=== PATIENT | male | born 1965 | race Caucasian/White ===

== ENCOUNTER 2021-01-23 10:02 | Inpatient (IN) ==
[~2021-01-23 10:02] MED LIST: IPRATROPIUM/ALBUTEROL 3 ML AMPUL.NEB NEB PRN; SCOPOLAMINE 1 PATCH PATCH TOPICAL PRN; ceFAZolin 2 GM in DEXTROSE 5% IN WATER 50 ML IV SCH
[2021-01-23] MEDS ORDERED: fentaNYL 100 MCG/2 ML VIAL IV ONE (14:34)
[2021-01-23] MEDS ORDERED: ONDANSETRON 4 MG/2 ML VIAL ONE (14:34)
[2021-01-23] MEDS ORDERED: PROPOFOL 200 MG/20 ML VIAL IV ONE (14:34)
[2021-01-23] MEDS ORDERED: MIDAZOLAM 5 MG/5 ML VIAL ONE (14:34)
[2021-01-23] MEDS ORDERED: METHYLENE BLUE 50 MG/10 ML AMPUL INJ ONE (14:45)
[2021-01-23] MEDS ORDERED: BACITRACIN TOPICAL OINT 15 GM TUBE TOPICAL ONE (15:55)
[2021-01-23] MEDS ORDERED: IPRATROPIUM/ALBUTEROL 3 ML AMPUL.NEB NEB PRN (16:08)
[2021-01-23] MEDS ORDERED: fentaNYL 100 MCG/2 ML VIAL IV PRN (16:08)
--- NOTE | 2021-01-23 16:27 | Brief Operative Note ---
Brief Operative Note Date of procedure: 01/23/21 Pre-op diagnosis: Stage 4 sacral ulcer with osteomyelitis Post-op diagnosis: same Procedure: Wide excision of sacral ulcer, extensive debridement of sacral bone, bilateral gluteal flap closure Grafts/Implants: No Anesthesia: regional and conscious sedation Findings: Stage 4 ulcer with small amount poor quality bone. Good bone post debridement Complications: none Surgeon: Tino Saeed Estimated blood loss (cc): 100 Specimens Removed/Pathology: other (Post irrigation culture of sacral bone sent to microbiology) Condition: stable Disposition: PACU
--- NOTE | 2021-01-23 16:28 | Brief Operative Note ---
Brief Operative Note Date of procedure: 01/23/21 Surgeon: Tino Saeed
[2021-01-23] MEDS ORDERED: ceFAZolin 2 GM in DEXTROSE 5% IN WATER 50 ML IV SCH (16:47)
[2021-01-23] MEDS ORDERED: ONDANSETRON 4 MG/2 ML VIAL IV PRN (16:47)
[2021-01-23] MEDS ORDERED: HYDROcodone/APAP 5/325MG TABLET PO PRN (16:47)
[2021-01-23] MEDS ORDERED: POLYETHYLENE GLYCOL 3350 17 GM PACKET PO PRN (16:47)
--- NOTE | 2021-01-23 17:06 | Internal Med History&Physical ---
HPI History of Present Illness Patient information: Note initiated : 01/23/21 at 5:05 pm Service Date, if different from initiated Date: [] Patient: Olga Becerra 55 y/o M admitted on 01/23/21 for Wound Flap Closure. Chief Complaint: [] History of present illness: Mr. 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 Saeed and subsequently admitted to the hospital. The patient has been followed by infectious disease for sacral osteomyelitis. The patient was on broad-spectrum antibiotics prior to admission. Hospital medicine was consulted for medical management during the patient's hospitalization. The plan going forward is placement in a long term facility for wound care and probably rehab. The patient will likely also need antibiotic coverage going forward for them on certain period of time. When I spoke to the patient postoperatively, he says that his pain is well controlled. He did mention that he would like his left extremity PICC line removed. It sounds like this PICC line has been in place for several months. We discussed CODE STATUS at the end of our conversation, the patient wishes to be full code. Constitutional: no fever or fatigue Eyes: no vision changes or pain Cardiovascular: no chest pain, no palpitations Respiratory: no cough or dyspnea Gastrointestinal: positive for constipation, no abdominal pain, no nausea, vomiting, or diarrhea Genitourinary: urinary incontinence Musculoskeletal: no arthralgia or myalgia Integumentary: wound on back Neurological: paraplegia Psychiatric: no anxiety or depression Head: Atraumatic, normal inspection. Eyes: normal appearance, no scleral icterus. Neck: full ROM Respiratory: no respiratory distress. Cardiovascular: normal rate and rhythm, S1, S2. GI/Abdominal: soft, nontender, no guarding. Extremities: full range of motion, nontender. Neurological: CN II-XII intact, intact motor, intact sensation. Psychiatric: normal mood. Skin: clean decubitus pressure wound flap closure, two NAYE drains. PFSH PFSH All Active Problems (Updated 01/14/21 @ 14:18 by Latoya Erazo) Gout (Chronic) UTI (urinary tract infection) (Chronic) Anxiety disorder (Chronic) Cough (Chronic) Nausea with vomiting, unspecified (Chronic) Constipation, unspecified (Chronic) [facility] (current) use of insulin (Chronic) Personal history of other venous thrombosis and embolism (Chronic) [facility] (current) use of anticoagulants (Chronic) Body mass index [BMI] 20.0-20.9, adult (Chronic) Unspecified severe protein-calorie malnutrition (Chronic) Other disorders of phosphorus metabolism (Chronic) Pressure ulcer of sacral region, unstageable (Chronic) Generalized anxiety disorder (Chronic) Ascorbic acid deficiency (Chronic) Vitamin D deficiency, unspecified (Chronic) Iron deficiency anemia, unspecified (Chronic) Infection and inflammatory reaction due to indwelling urethral catheter, subsequent encounter (Chronic) Candidiasis, unspecified (Chronic) Infection due to Pseudomonas aeruginosa [place] Epidemic Strain (Chronic) Type 2 diabetes mellitus without complications (Chronic) Paraplegia, unspecified (Chronic) Spina bifida, unspecified (Chronic) Acute pyelonephritis (Chronic) Acute kidney failure, unspecified (Chronic) Acidosis (Chronic) 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) Medical History (Updated 01/14/21 @ 14:18 by Latoya Erazo) Acidosis Acute kidney failure, unspecified Acute pyelonephritis Acute tubulointerstitial nephritis due to hypersensitivity to drugs Due to piperacillin tazobactam Peak Creatinine 8 to 9 mg/dL Complete resolution with discontinuation of antibiotic and 1 month of prednisone therapy D/C calcium acetate Anxiety disorder Ascorbic acid deficiency Body mass index [BMI] 20.0-20.9, adult Candidiasis, unspecified Constipation, unspecified Cough Generalized anxiety disorder Gout Infection and inflammatory reaction due to indwelling urethral catheter, subsequent encounter Infection due to Pseudomonas aeruginosa [place] Epidemic Strain Iron deficiency anemia, unspecified supervisor intermediates (current) use of anticoagulants [facility] (current) use of insulin Nausea with vomiting, unspecified Other disorders of phosphorus metabolism Paraplegia, unspecified Personal history of other venous thrombosis and embolism Pressure ulcer of sacral region, unstageable Spina bifida, unspecified Type 2 diabetes mellitus without complications Unspecified severe protein-calorie malnutrition UTI (urinary tract infection) Vitamin D deficiency, unspecified Surgical History (Updated 01/14/21 @ 13:52 by Latoya Erazo) Presence of urogenital implants Family History (Updated 01/14/21 @ 13:47 by Latoya Erazo) Other No pertinent family history MEDS/ALLERGIES Home Medications and Allergies Home Medications Medication Instructions Recorded Confirmed Type acetaminophen 325 mg capsule 325 mg PO Q6HP PRN 01/08/21 01/23/21 History allopurinol 100 mg tablet 100 mg PO QDAY 01/08/21 01/23/21 History ascorbate calcium (vitamin C) 500 500 mg PO QDAY 01/08/21 01/23/21 History mg tablet aztreonam 1 gram solution for 1 g IM TID ea 01/08/21 01/23/21 History injection calcium carbonate 200 mg calcium 200 mg PO BID 01/08/21 01/23/21 History (500 mg) chewable tablet cholecalciferol (vitamin D3) 50 50 mcg PO QDAY 01/08/21 01/23/21 History mcg (2,000 unit) capsule collagenase clostridium histo. 250 1 applic TOPICAL QDAY 01/08/21 01/23/21 History unit/gram topical ointment guaifenesin 600 mg tablet, 600 mg PO Q12H PRN 01/08/21 01/23/21 History extended release 12 hr hydroxyzine HCl 25 mg tablet 25 mg PO Q6H PRN tab 01/08/21 01/23/21 History metoclopramide HCl 10 mg tablet 10 mg PO QDAY tab 01/08/21 01/23/21 History metronidazole 500 mg tablet 500 mg PO TID 01/08/21 01/23/21 History multivitamin 1 tab PO QAM 01/08/21 01/23/21 History warfarin 3 mg tablet 3 mg PO QDAY 01/08/21 01/23/21 History zinc gluconate 50 mg tablet 50 mg PO BID 01/08/21 01/23/21 History zinc oxide 20 % topical ointment 1 applic TOPICAL BID-QID PRN 01/08/21 01/23/21 History bisacodyl 5 mg tablet,delayed 5 mg PO QDAY PRN 01/14/21 01/23/21 History release linezolid 600 mg tablet 600 mg PO BID 01/14/21 01/23/21 History calcium carbonate-vitamin D3 1 tab PO BID 01/16/21 01/23/21 History Allergies Allergy/AdvReac Type Severity Reaction Status Date / Time piperacillin Allergy Severe Drug Verified 01/16/21 16:52 induced tubulointerstitial nephritis vancomycin Allergy Severe Red Man's Verified 01/16/21 15:53 Syndrome Erythromycin Base Allergy Unknown Unknown Verified 01/16/21 15:53 povidone-iodine Allergy Unknown Unknown Verified 01/16/21 15:53 [From [employer] Povidone Iodine] tazobactam [From Zosyn] AdvReac Severe Drug Verified 01/16/21 16:52 induced tubulointerstitial nephritis EXAM Constitutional Vitals: Temp Pulse Resp BP Pulse Ox 97.5 F 86 12 114/81 99 01/23/21 16:15 01/23/21 16:15 01/23/21 16:15 01/23/21 16:15 01/23/21 16:15 A/P Narrative A/P Narrative: Assessment: 55 year old male with a history of spina bifida and paraplegia, recurrent DVT, stage IV sacral pressure wound complicated by chronic wound infection and sacral osteomyelitis, prior AKIlikely secondary to acute interstitial nephritis from IV antibiotics, history of MRSA infection, bladder lesion of uncertain etiology underwent stage IV sacral pressure wound and sacral osteomyelitis debridement with bilateral gluteal flap closure on 01/23/[address] Saeed and subsequently admitted to the hospital. The patient had a PICC line for outpatient antibiotics that was removed soon after admission as it a ppeared to be contaminated and has been in for months according to the patient. The patient also has a carl catheter that was exchanged about a week ago. 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 -Diflucan for UTI. -Follow surgical cultures. -Resume Coumadin when ok with surgery, likely tomorrow. -Analgesics prn. -CBC, CMP, INR. -PICC line prior to discharge. -Ensure carl catheter exchange every 3 weeks to decrease risk of CAUTI. -DVT ppx: SCD now, likely start lovenox tomorrow. -Code status: Full -Disposition: SNF Time Spent With Patient Time: Total time spent is greater than 50% in coordination of care (as documented) at patient's floor/unit and/or counseling patient: 72 minutes QUALITY VTE Deep Vein Thrombosis/Pulmonary Embolism Present on Admission: No
[2021-01-23 17:54] LABS: Hematocrit 31.5 % (41.0-55.0); Mean Cell Volume 90.3 fL (80.0-100.0); Mean Corpuscular HGB Conc 31.7 g/dL (31.0-36.0); Mean Platelet Volume 8.5 fL (7.4-10.4); Platelet Count 507 K/mcL (140-440); RBC 3.49 M/mcL (4.50-5.90); Red Cell Distribution Width 19.9 % (11.5-14.5); WBC 10.3 K/mcL (4.5-11.0)
[2021-01-23] MEDS: FLUCONAZOLE 100 MG TABLET PO SCH (18:07)
[2021-01-23 18:15] LABS: ALT/SGPT 30 U/L (<40); AST/SGOT 24 U/L (<40); Albumin 2.9 gm/dL (3.2-5.2); Alkaline Phosphatase 74 U/L (39-117); Bilirubin,Total 0.2 mg/dL (0.1-1.0); Blood Urea Nitrogen 13 mg/dL (6-20); Calcium 8.4 mg/dL (8.6-10.4); Carbon Dioxide 28 mmol/L (22-30); Chloride 100 mmol/L (96-108); Glomerular Filtration Rate 120; Glucose 90 mg/dL (70-105)
[2021-01-23 18:20] LABS: INR 1.4 (0.9-1.1)
[2021-01-23 18:31] LABS: Eosinophils % (Manual) 16 % (0-7); Lymphocytes % 18 % (15-49); Monocytes % (Manual) 6 % (1-12); Platelet Estimate INCREASED (Normal); RBC Morphology NORMAL (Normal); Segmented Neutrophils % 60 % (38-78)
[2021-01-23] MEDS ORDERED: DAPTOmycin 500 MG VIAL IV SCH (19:15)
[2021-01-23] MEDS: DAPTOmycin 500 MG VIAL IV SCH (20:50)
[2021-01-23] MEDS: MEROPENEM 1 GM in 0.9 % SODIUM CHLORIDE 100 ML IV SCH (20:51)
[2021-01-23] MEDS: 0.9 % SODIUM CHLORIDE 10 ML SYRINGE IV SCH (20:52)
[2021-01-23] MEDS: SENNOSIDES 1 TABLET PO SCH (20:52)
[2021-01-23] MEDS: BACITRACIN TOPICAL OINT 15 GM TUBE TOPICAL SCH (20:52)
[2021-01-23] MEDS ORDERED: BACITRACIN TOPICAL OINT 15 GM TUBE TOPICAL SCH (21:00)
[2021-01-24] MEDS: 0.9 % SODIUM CHLORIDE 10 ML SYRINGE IV SCH ×3 (05:34→21:25)
[2021-01-24] MEDS: MEROPENEM 1 GM in 0.9 % SODIUM CHLORIDE 100 ML IV SCH (05:34)
[2021-01-24] MEDS: diphenhydrAMINE 25 MG CAPSULE PO PRN (07:31)
--- NOTE | 2021-01-24 07:31 | Infectious Disease Consult ---
HPI Data of Consult Primary Care Provider: Zaira Lopez Consult Narrative Patient Information: Note initiated : 01/24/21 at 7:14 am Service Date, if different from initiated Date: [] Patient: Olga Becerra 55 y/o M admitted on 01/23/21 for Wound Flap Closure. Chief Complaint: [tired of the hospital] Kelton is a 55-year-old paraplegic with spina bifida. I last saw him January 16. He has a previous history of sacral and left medial buttock decubitus ulcer. He has previously had left ischial osteomyelitis requiring muscle flap repair October 10, 2020. He finished 5 weeks of IV antibiotics Zosyn plus vancomycin approximately November 15. He developed rash towards the end of treatment requiring prednisone therapy. He subsequently developed new sacral decubitus ulceration and coccygeal osteomyelitis. Original cultures on September 24, 2020 grew group B strep, E. coli, Pseudomonas, and Streptococcus mitis. He had sacra l cultures positive for MRSA and Enterococcus December 19, 2020. He has been on IV aztreonam oral Zyvox oral Flagyl for the past [address] Saeed completed sacral bone debridement and bilateral flap yesterday postop day 1. His sed rate on January 13 was 64. Last week, he required Oneal catheter placement. He also developed new fever prompting cultures. A urine culture had grown Randee albicans and Diflucan was started currently day 5. He has a previous history of allergy to erythromycin and vancomycin. His previous allergy occurred in combination with vancomycin plus Zosyn. He previously had a rechallenge with oral Augmentin and tolerated. I therefore considered his significant allergy history previously to vancomycin rather than Zosyn. Dr. Cobos contacted last night for consultation today regarding antibiotic therapy. Dr. Saeed obtained post procedure cultures yesterday. These results will help determine if he needs to receive 1 week versus 6 weeks of treatment. This morning, Kelton feels flushed and itchy. On January 20 H&H 05/02 white count 6.1 platelet count 533 sed rate 79 glucose 151 creatinine 0.6 and CRP 0.6. Temperature on January 21 99.1. Yesterday 97.9. He has a history of DVT June 03, 2020 requiring Coumadin. He has a previous history of [employer] shunt urinary sphincter implant with neurogenic bladder, left femur rodding as well as first sacral decubitus flap 2002. cc:: CC: Tino Saeed Review of Systems Review of systems: Generally: No fevers or chills. HEENT: No headache or sore throat. No neck complaints. Pulmonary: No cough or shortness of breath. Cardiac: No chest pain. GI: No abdominal pain. : Oneal catheter is in place. Extremities: He is wearing SCDs. Left PICC line has been removed. Skin: He does complain of itchiness. 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) use of anticoagulants (Chronic) Body mass index [BMI] 20.0-20.9, adult (Chronic) Unspecified severe protein-calorie malnutrition (Chronic) Other disorders of phosphorus metabolism (Chronic) Pressure ulcer of sacral region, unstageable (Chronic) Generalized anxiety disorder (Chronic) Ascorbic acid deficiency (Chronic) Vitamin D deficiency, unspecified (Chronic) Iron deficiency anemia, unspecified (Chronic) Infection and inflammatory reaction due to indwelling urethral catheter, subsequent encounter (Chronic) Candidiasis, unspecified (Chronic) Infection due to Pseudomonas aeruginosa [place] Epidemic Strain (Chronic) Type 2 diabetes mellitus without complications (Chronic) Paraplegia, unspecified (Chronic) Spina bifida, unspecified (Chronic) Acute pyelonephritis (Chronic) Acute kidney failure, unspecified (Chronic) Acidosis (Chronic) 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) Medical History (Updated 01/24/21 @ 07:33 by Adria Pittman MD) Acidosis Acute kidney failure, unspecified Acute pyelonephritis Acute tubulointerstitial nephritis due to hypersensitivity to drugs Due to piperacillin tazobactam Peak Creatinine 8 to 9 mg/dL Complete resolution with discontinuation of antibiotic and 1 month of prednisone therapy D/C calcium acetate Anxiety disorder Ascorbic acid deficiency Body mass index [BMI] 20.0-20.9, adult Candidiasis, unspecified Constipation, unspecified Cough Generalized anxiety disorder Gout Infection and inflammatory reaction due to indwelling urethral catheter, subsequent encounter Infection due to Pseudomonas aeruginosa [place] Epidemic Strain Iron deficiency anemia, unspecified detention (current) use of anticoagulants detention (current) use of insulin Nausea with vomiting, unspecified Other disorders of phosphorus metabolism Paraplegia, unspecified Previous discussion regarding colostomy has been advised Personal history of other venous thrombosis and embolism Pressure ulcer of sacral region, unstageable Postop day 1. Will discuss with Dr. Cobos. Thank you very much. Spina bifida, unspecified Chronic. Type 2 diabetes mellitus without complications Unspecified severe protein-calorie malnutrition UTI (urinary tract infection) Vitamin D deficiency, unspecified Surgical History Presence of urogenital implants Family History Other No pertinent family history MEDS/ALLERGIES Home Medications and Allergies Home Medications Medication Instructions Recorded Confirmed Type acetaminophen 325 mg capsule 325 mg PO Q6HP PRN 01/08/21 01/23/21 History allopurinol 100 mg tablet 100 mg PO QDAY 01/08/21 01/23/21 History ascorbate calcium (vitamin C) 500 500 mg PO QDAY 01/08/21 01/23/21 History mg tablet aztreonam 1 gram solution for 1 g IM TID ea 01/08/21 01/23/21 History injection calcium carbonate 200 mg calcium 200 mg PO BID 01/08/21 01/23/21 History (500 mg) chewable tablet cholecalciferol (vitamin D3) 50 50 mcg PO QDAY 01/08/21 01/23/21 History mcg (2,000 unit) capsule collagenase clostridium histo. 250 1 applic TOPICAL QDAY 01/08/21 01/23/21 History unit/gram topical ointment guaifenesin 600 mg tablet, 600 mg PO Q12H PRN 01/08/21 01/23/21 History extended release 12 hr hydroxyzine HCl 25 mg tablet 25 mg PO Q6H PRN tab 01/08/21 01/23/21 History metoclopramide HCl 10 mg tablet 10 mg PO QDAY tab 01/08/21 01/23/21 History metronidazole 500 mg tablet 500 mg PO TID 01/08/21 01/23/21 History multivitamin 1 tab PO QAM 01/08/21 01/23/21 History warfarin 3 mg tablet 3 mg PO QDAY 01/08/21 01/23/21 History zinc gluconate 50 mg tablet 50 mg PO BID 01/08/21 01/23/21 History zinc oxide 20 % topical ointment 1 applic TOPICAL BID-QID PRN 01/08/21 01/23/21 History bisacodyl 5 mg tablet,delayed 5 mg PO QDAY PRN 01/14/21 01/23/21 History release linezolid 600 mg tablet 600 mg PO BID 01/14/21 01/23/21 History calcium carbonate-vitamin D3 1 tab PO BID 01/16/21 01/23/21 History Allergies Allergy/AdvReac Type Severity Reaction Status Date / Time piperacillin Allergy Severe Drug Verified 01/16/21 16:52 induced tubulointerstitial nephritis vancomycin Allergy Severe Red Man's Verified 01/16/21 15:53 Syndrome Erythromycin Base Allergy Unknown Unknown Verified 01/16/21 15:53 povidone-iodine Allergy Unknown Unknown Verified 01/16/21 15:53 [From [employer] Povidone Iodine] tazobactam [From Zosyn] AdvReac Severe Drug Verified 01/16/21 16:52 induced tubulointerstitial nephritis Physical Examination Vital Signs Vital signs: Temp Pulse Resp BP Pulse Ox 98.9 F 125 H 18 102/61 96 01/24/21 03:26 01/24/21 03:26 01/24/21 03:26 01/24/21 03:26 01/24/21 03:26 Additional Exam Additional exam: General: He appears generally flushed in the face. He is scratching his arms. HEENT: No oral ulcers. Anicteric sclera. No lip lesions. EOMI. Neck is supple. Lungs are clear without wheezing. Heart: Regular rate and rhythm without murmur. Abdomen: Soft nontender. : Positive Oneal catheter. Extremities: No knee effusions. SCDs in place. Skin: He is beginni ng to develop skin pinkness. Skin is dry on his upper extremities. He has a right peripheral line in place. 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 He has previously had left ischial osteomyelitis with flap repair October 10, 2020. He received 5 weeks of IV antibiotic therapy at that time completing therapy approximately November 15. He developed rash towards the end of treatment with Vanco and Zosyn. Last sacral culture obtained December 19, 2020 grew MRSA and Enterococcus. He has been on IV aztreonam plus oral Zyvox, oral Flagyl for the past 3 weeks. He is now postop day 1 surgical debridement for sacrococcygeal osteomyelitis and bilateral flap. 2 drains remain. Bloody fluid within the drain bulbs. Postprocedure cultures obtained today. He is currently on IV meropenem plus daptomycin. It appears that he is developing allergic reaction again now. Benadryl started. I suspect meropenem as etiology. DC meropenem and substitute aztreonam and Flagyl. Duration of therapy will depend on culture results. If cultures are negative I would only recommend 1 week of therapy. If cultures are positive, he will need treatment for osteomyelitis 6 weeks directed against organism. I will be out of town next week, but available by phone. Add meropenem to drug allergy list. (2) MRSA (methicillin resistant staph aureus) culture positive: Status: Acute Comment: Daptomycin to cover. Previous allergy to vancomycin. (3) Paraplegia, unspecified: Status: Chronic Comment: Previous discussion regarding colostomy has been advised (4) Spina bifida, unspecified: Status: Chronic Comment: Chronic. (5) Pressure ulcer of sacral region, unstageable: Status: Chronic Comment: Postop day 1. Will discuss with Dr. Cobos. Thank you very much. Time Spent With Patient Time: Total time spent is greater than 50% in coordination of care (as documented) at patient's floor/unit and/or counseling patient:
[2021-01-24 08:00] LABS: Basophils # (Auto) 0.08 K/mcL (0.00-0.20); Basophils % (Auto) 0.6 % (0.0-2.0); Eosinophils # (Auto) 1.88 K/mcL (0.00-0.70); Eosinophils % (Auto) 14.6 % (0.0-7.0); Hematocrit 32.7 % (41.0-55.0); Hemoglobin 10.2 g/dL (13.5-16.5); Lymphocytes % (Auto) 4.7 % (15.0-49.0); Mean Cell Volume 90.1 fL (80.0-100.0); Mean Corpuscular HGB Conc 31.2 g/dL (31.0-36.0); Mean Platelet Volume 8.9 fL (7.4-10.4); Monocytes # (Auto) 0.83 K/mcL (0.10-0.90); Monocytes % (Auto) 6.4 % (1.0-12.0); Neutrophils % (Auto) 73.7 % (38.0-78.0); Platelet Count 569 K/mcL (140-440); RBC 3.63 M/mcL (4.50-5.90); Red Cell Distribution Width 19.9 % (11.5-14.5); WBC 12.9 K/mcL (4.5-11.0)
[2021-01-24] MEDS: AZTREONAM 1 GM VIAL IV SCH ×3 (08:15→21:25)
[2021-01-24] MEDS: FLUCONAZOLE 100 MG TABLET PO SCH (08:59)
[2021-01-24] MEDS: BACITRACIN TOPICAL OINT 15 GM TUBE TOPICAL SCH ×2 (09:00→21:24)
--- NOTE | 2021-01-24 12:10 | Internal Med Progress Note ---
SUBJECTIVE Subjective Patient information: Note initiated : 01/24/21 at 12:08 pm Service Date, if different from initiated Date: [] Patient: Olga Becerra 55 y/o M admitted on 01/23/21 for Wound Flap Closure. Chief Complaint: [] Interval history: Mr. 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 Saeed and subsequently admitted to the hospital. The patient has been followed by infectious disease for sacral osteomyelitis. The patient was on broad-spectrum antibiotics prior to admission. Hospital medicine was consulted for medical management during the patient's hospitalization. The plan going forward is placement in a nursing home facility for wound care and probably rehab. The patient will likely also need antibiotic coverage going forward for them on certain period of time. When I spoke to the patient postop eratively, he says that his pain is well controlled. He did mention that he would like his left extremity PICC line removed. It sounds like this PICC line has been in place for several months. We discussed CODE STATUS at the end of our conversation, the patient wishes to be full code. 01/24-developed a rash, ID feel secondary to Meropenem. Started Benadryl and Prednisone, Meropenem changed to Aztreonam. Head: Atraumatic, normal inspection. Eyes: normal appearance, no scleral icterus. Neck: full ROM Respiratory: no respiratory distress. Cardiovascular: normal rate and rhythm, S1, S2. GI/Abdominal: soft, nontender, no guarding. Extremities: full range of motion, nontender. Neurological: CN II-XII intact, bilateral lower extremity weakness Psychiatric: normal mood. Skin: diffuse rash, two NAYE drains present. Constitutional Vitals: Vital Signs Temp Pulse Resp BP Pulse Ox 99.3 F H 123 H 16 109/61 96 01/24/21 08:00 01/24/21 08:00 01/24/21 08:00 01/24/21 08:00 01/24/21 08:00 Period Temp Pulse Resp BP Sys/Reich Pulse Ox Last 24 Hr 97.3 F-99.3 F 81-125 10-18 96-125/61-81 96-100 Intake and Output 01/23/21 01/24/21 01/24/21 21:59 05:59 13:59 Intake Total 850 600 100 Output Total 300 675 Balance 550 -75 100 Weight 61.292 kg Intake & Output: Intake & Output 01/23/21 01/24/21 01/24/21 21:59 05:59 13:59 Intake Total 850 600 100 Output Total 300 675 Balance 550 -75 100 Weight 61.292 kg Intake: IV 50 100 100 Merrem 1 gm In Sodium Chloride 100 100 0.9% 100 ml @ 100 mls/hr IV Q8H [facility] Rx#:[id number] Ancef 2 gm In Dextrose 5% in 50 Water 50 ml @ 100 mls/hr IV PREOP [facility] Rx#:[id number] Oral 500 IV - Manual Only 800 Output: Drainage 25 right hip A 10 right hip B 15 Urine Catheter Amount 100 650 Estimated Blood Loss 200 Other: Urine Appearance Uretheral (Carl) Clear Clear Urine Color Uretheral (Carl) Bright Yellow Bright Yellow Stool Size Smear Stool Color Brown # of times incontinent of 1 Bowels OBJ DATA Labs CBC & Chem 7: 01/24/21 05:15 01/23/21 17:22 Labs: Abnormal Lab Results 01/24/21 01/23/21 01/23/21 05:15 17:22 17:22 WBC 12.9 H RBC 3.63 L 3.49 L Hgb 10.2 L 10.0 L Hct 32.7 L 31.5 L RDW 19.9 H 19.9 H Plt Count 569 H 507 H Lymph % (Auto) 4.7 L Eos % (Auto) 14.6 H Lymph # (Auto) 0.60 L Eos # (Auto) 1.88 H Eosinophils % (Manual) 16 H Absolute Neutrophils 9.50 H Platelet Estimate Increased A PT INR Anion Gap 6.0 L Creatinine 0.5 L Calcium 8.4 L Albumin 2.9 L 01/23/21 17:22 WBC RBC Hgb Hct RDW Plt Count Lymph % (Auto) Eos % (Auto) Lymph # (Auto) Eos # (Auto) Eosinophils % (Manual) Absolute Neutrophils Platelet Estimate PT 18.0 H INR 1.4 H Anion Gap Creatinine Calcium Albumin Meds: Medications Acetaminophen (Acetaminophen 325 Mg Tablet) 650 mg PO Q6HP PRN; Protocol PRN Reason: Per Pain Protocol/Fever > 101 Hydrocodone Bitart/Acetaminophen (Hydrocodone/Apap 5/325mg Tablet) 1 tab PO Q4HP PRN; Protocol PRN Reason: Per Pain Protocol Aztreonam (Aztreonam 1 Gm Vial) 1 gm IV Q8H [facility]; Protocol Last Admin: 01/24/21 08:15 Dose: 1 gm Documented by: Bacitracin (Bacitracin Topical Oint 15 Gm Tube) 1 dose TOPICAL BID [facility] Last Admin: 01/24/21 09:00 Dose: 1 dose Documented by: Daptomycin (Daptomycin 500 Mg Vial) 400 mg IV DAILY [facility]; Protocol Last Admin: 01/23/21 20:50 Dose: 400 mg Documented by: Diphenhydramine HCl (Diphenhydramine 25 Mg Capsule) 25 mg PO Q4-6HP PRN PRN Reason: Allergic Symptoms Last Admin: 01/24/21 07:31 Dose: 25 mg Documented by: Fluconazole (Fluconazole 100 Mg Tablet) 200 mg PO DAILY [facility]; Protocol Stop: 01/26/21 09:01 Last Admin: 01/24/21 08:59 Dose: 200 mg Documented by: Metronidazole (Metronidazole 500 Mg Tablet) 500 mg PO Q8 [facility]; Protocol Ondansetron HCl (Ondansetron 4 Mg/2 Ml Vial) 4 mg IV Q6HP PRN PRN Reason: Nausea And Vomiting Polyethylene Glycol (Polyethylene Glycol 3350 17 Gm Packet) 17 gm PO DAILYP PRN PRN Reason: Constipation Prednisone (Prednisone 20 Mg Tablet) 40 mg PO [facility] Stop: 01/28/21 08:01 Senna (Sennosides 1 Tablet) 2 tab PO HS [facility] Last Admin: 01/23/21 20:52 Dose: Not Given Documented by: Sodium Chloride (0.9 % Sodium Chloride 10 Ml Syringe) 10 ml IV Q8 [facility] Last Admin: 01/24/21 05:34 Dose: 10 ml Documented by: A/P Narrative A/P Narrative: Assessment: 55 year old male with a history of spina bifida and paraplegia, recurrent DVT, stage IV sacral pressure wound complicated by chronic wound infection and sacral osteomyelitis, prior AKIlikely secondary to acute interstitial nephritis from IV antibiotics, history of MRSA infection, bladder lesion of uncertain etiology underwent stage IV sacral pressure wound and sacral osteomyelitis debridement with bilateral gluteal flap closure on 01/23/[address] Saeed and subsequently admitted to the hospital. The patient had a PICC line for outpatient antibiotics that was removed soon after admission as it appeared to be contaminated and has been in for months according to the patient. The patient also has a carl catheter that was exchanged about a week ago. 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 -Benadryl prn and Prednisone x5 days for rash (and hx of AIN) -Diflucan for UTI. -Follow surgical cultures. -Resume Coumadin-ok with surgery. -Analgesics prn. -daily CBC, CMP, INR. -Will probably need a PICC line prior to discharge. -Ensure carl catheter exchange every 3 weeks to decrease risk of CAUTI. -DVT ppx: lovenox SQ -Code status: Full -Disposition: SNF vs LTACH Time Spent With Patient Time: Total time spent is greater than 50% in coordination of care (as documented) at patient's floor/unit and/or counseling patient: QUALITY VTE Deep Vein Thrombosis/Pulmonary Embolism Present on Admission: No
[2021-01-24] MEDS: ACETAMINOPHEN 325 MG TABLET PO PRN ×2 (12:16→17:44)
[2021-01-24] MEDS: predniSONE 20 MG TABLET PO SCH (12:17)
[2021-01-24] MEDS ORDERED: ENOXAPARIN 40 MG/0.4 ML SYRINGE SQ ONE (12:30)
[2021-01-24] MEDS: DAPTOmycin 500 MG VIAL IV SCH (13:27)
--- NOTE | 2021-01-24 13:27 | General Surgery Progress Note ---
SUBJECTIVE Subjective Patient information: Note initiated : 01/24/21 at 1:24 pm Service Date, if different from initiated Date: [] Patient: Olga Becerra 55 y/o M admitted on 01/23/21 for Wound Flap Closure. Chief Complaint: []Feels okay but has high fever Constitutional Vitals: Vital Signs Temp Pulse Resp BP Pulse Ox 102.7 F H 146 H 16 91/58 94 01/24/21 12:16 01/24/21 12:00 01/24/21 12:00 01/24/21 12:00 01/24/21 12:00 Period Temp Pulse Resp BP Sys/Reich Pulse Ox Last 24 Hr 97.3 F-102.7 F 81-146 10-18 91-125/58-81 94-100 Intake and Output 01/23/21 01/24/21 01/24/21 21:59 05:59 13:59 Intake Total 850 600 100 Output Total 300 675 Balance 550 -75 100 Weight 135 lb 2 oz Intake & Output: Intake & Output 01/23/21 01/24/21 01/24/21 21:59 05:59 13:59 Intake Total 850 600 100 Output Total 300 675 Balance 550 -75 100 Weight 135 lb 2 oz Intake: IV 50 100 100 Merrem 1 gm In Sodium Chloride 100 100 0.9% 100 ml @ 100 mls/hr IV Q8H [facility] Rx#:[id number] Ancef 2 gm In Dextrose 5% in 50 Water 50 ml @ 100 mls/hr IV PREOP [facility] Rx#:[id number] Oral 500 IV - Manual Only 800 Output: Drainage 25 right hip A 10 right hip B 15 Urine Catheter Amount 100 650 Estimated Blood Loss 200 Other: Urine Appearance Uretheral (Oneal) Clear Clear Urine Color Uretheral (Oneal) Bright Yellow Bright Yellow Stool Size Smear Stool Color Brown # of times incontinent of 1 Bowels Head Head exam: Present atraumatic and normal inspection Eye Eye exam: Present normal appearance ENT ENT exam: Present mucous membranes moist, normal exam and normal external ear exam Neck Neck exam: Present normal inspection Respiratory Respiratory exam: Present normal respiratory exam Cardiovascular Cardiovascular exam: Present normal rate and rhythm GI/Abdominal GI/Abdominal exam: Present normal bowel sounds Back Exam Back exam: Present normal inspection Neurological Exam Neurological exam: Present alert and oriented X3 Skin Skin exam: Present intact and warm Additional comments: Surgical site clean, dry, intact. No evidence of infection, no drainage. NAYE drainage bloody A/P Narrative A/P Narrative: One day s/p excision and flap closure of sacral wound with osteomyelitis Surgical site intact, drainage minimal, bloody. Cx with no growth to date. Continue local care, IV abx, await final cultures to direct abx management Fever does not appear to be from surgical site. Nurses state he's using spirometer well. Pt says he doesn't feel ill. Discussed possibility of getting a bed with better air off loading capacity or at least see if his bed can be adjusted. Time Spent With Patient Time: Total time spent is greater than 50% in coordination of care (as documented) at patient's floor/unit and/or counseling patien Total time spent with greater than 50% in coordination of care (as documented) at patient's floor/unit and/or counseling patient:: 25 - 35 minutes
[2021-01-24] MEDS: metroNIDAZOLE 500 MG TABLET PO SCH ×2 (13:29→21:24)
[2021-01-24] MEDS ORDERED: WARFARIN 3 MG TABLET PO ONE (14:00)
[2021-01-24] MEDS: SENNOSIDES 1 TABLET PO SCH (20:04)
[2021-01-25] MEDS: metroNIDAZOLE 500 MG TABLET PO SCH ×3 (06:09→21:12)
[2021-01-25] MEDS: 0.9 % SODIUM CHLORIDE 10 ML SYRINGE IV SCH ×3 (06:10→21:12)
[2021-01-25] MEDS: AZTREONAM 1 GM VIAL IV SCH ×3 (06:10→21:12)
[2021-01-25 07:49] LABS: Basophils # (Auto) 0.05 K/mcL (0.00-0.20); Basophils % (Auto) 0.4 % (0.0-2.0); Eosinophils # (Auto) 0.28 K/mcL (0.00-0.70); Hematocrit 29.7 % (41.0-55.0); Hemoglobin 9.1 g/dL (13.5-16.5); Lymphocytes # (Auto) 0.58 K/mcL (1.50-4.80); Lymphocytes % (Auto) 4.2 % (15.0-49.0); Mean Corpuscular HGB Conc 30.6 g/dL (31.0-36.0); Mean Platelet Volume 9.1 fL (7.4-10.4); Monocytes # (Auto) 0.64 K/mcL (0.10-0.90); Monocytes % (Auto) 4.7 % (1.0-12.0); Neutrophils % (Auto) 88.7 % (38.0-78.0); Platelet Count 579 K/mcL (140-440); RBC 3.23 M/mcL (4.50-5.90); Red Cell Distribution Width 19.9 % (11.5-14.5); WBC 13.7 K/mcL (4.5-11.0)
[2021-01-25] MEDS: diphenhydrAMINE 25 MG CAPSULE PO PRN (07:50)
[2021-01-25 08:02] LABS: INR 1.4 (0.9-1.1); Prothrombin Time 17.5 sec (11.9-14.5)
--- NOTE | 2021-01-25 09:24 | General Surgery Progress Note ---
SUBJECTIVE Subjective Patient information: Note initiated : 01/25/21 at 9:21 am Service Date, if different from initiated Date: [] Patient: Olga Becerra 55 y/o M admitted on 01/23/21 for Wound Flap Closure. Now POD #2 Chief Complaint: Pt feeling better this morning. Feels a little warm but eating well. Constitutional Vitals: Vital Signs Temp Pulse Resp BP Pulse Ox 99.5 F H 103 H 18 108/62 98 01/25/21 07:00 01/25/21 07:00 01/25/21 07:00 01/25/21 07:00 01/25/21 07:00 Period Temp Pulse Resp BP Sys/Reich Pulse Ox Last 24 Hr 97.8 F-102.7 F 103-146 16-18 80-136/50-62 94-99 Intake and Output 01/24/21 01/25/21 01/25/21 21:59 05:59 13:59 Intake Total 200 Output Total 575 365 Balance -575 -165 Weight 138 lb 3 oz Intake & Output: Intake & Output 01/24/21 01/25/21 01/25/21 21:59 05:59 13:59 Intake Total 200 Output Total 575 365 Balance -575 -165 Weight 138 lb 3 oz Intake: Oral 200 Output: Drainage 25 15 right hip A 10 5 right hip B 15 10 Urine Catheter Amount 550 350 Other: Urine Appearance Clear Clear Sediment Uretheral (Oneal) Clear Urine Color Light Leticia Dark Yellow Uretheral (Oneal) Straw Stool Size Smear Large Stool Color Brown Brown Stool Consistency Soft Dry and Hard # Bowel Movements 1 # of times incontinent of 1 Bowels A/P Time Spent With Patient Time: s/p exc and flap closure of sacral pressure ulcer with underlying osteo of the sacrum Doing better. Temp is down albeit Tylenol is helping, cultures pending. Surgical cultures still with no growth. COntinue IV abx, local wound care, nutrition. Total time spent is greater than 50% in coordination of care (as documented) at patient's floor/unit and/or counseling patient:
[2021-01-25] MEDS: ENOXAPARIN 40 MG/0.4 ML SYRINGE SQ SCH (09:52)
[2021-01-25] MEDS: predniSONE 20 MG TABLET PO SCH (09:52)
[2021-01-25] MEDS: FLUCONAZOLE 100 MG TABLET PO SCH (09:52)
[2021-01-25] MEDS: BACITRACIN TOPICAL OINT 15 GM TUBE TOPICAL SCH ×2 (09:53→21:11)
[2021-01-25 10:01] LABS: Blood Urea Nitrogen 34 mg/dL (6-20); Calcium 8.6 mg/dL (8.6-10.4); Carbon Dioxide 25 mmol/L (22-30); Chloride 102 mmol/L (96-108); Glomerular Filtration Rate 105; Glucose 132 mg/dL (70-105)
[2021-01-25] MEDS: DAPTOmycin 500 MG VIAL IV SCH ×2 (12:21→12:25)
[2021-01-25] MEDS ORDERED: WARFARIN 5 MG TABLET PO ONE (14:00)
--- NOTE | 2021-01-25 16:27 | Internal Med Progress Note ---
SUBJECTIVE Subjective Patient information: Note initiated : 01/25/21 at 4:24 pm Service Date, if different from initiated Date: [] Patient: Olga Becerra 55 y/o M admitted on 01/23/21 for Wound Flap Closure. Chief Complaint: [] Interval history: Mr. 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 Saeed and subsequently admitted to the hospital. The patient has been followed by infectious disease for sacral osteomyelitis. The patient was on broad-spectrum antibiotics prior to admission. Hospital medicine was consulted for medical management during the patient's hospitalization. The plan going forward is placement in a halfway facility for wound care and probably rehab. The patient will likely also need antibiotic coverage going forward for them on certain period of time. When I spoke to the patient postope ratively, he says that his pain is well controlled. He did mention that he would like his left extremity PICC line removed. It sounds like this PICC line has been in place for several months. We discussed CODE STATUS at the end of our conversation, the patient wishes to be full code. 01/24-developed a rash, ID feel secondary to Meropenem. Started Benadryl and Prednisone, Meropenem coverage changed to Aztreonam and Flagyl. Daptomycin continued. 01/25-improved rash, will continue prednisone for 5 days. Head: Atraumatic, normal inspection. Eyes: normal appearance, no scleral icterus. Neck: full ROM Respiratory: no respiratory distress. Cardiovascular: normal rate and rhythm, S1, S2. GI/Abdominal: soft, nontender, no guarding. Extremities: full range of motion, nontender. Neurological: CN II-XII intact, bilateral lower extremity weakness Psychiatric: normal mood. Skin: diffuse rash, two NAYE drains present. Constitutional Vitals: Vital Signs Temp Pulse Resp BP Pulse Ox 98.6 F 110 H 16 101/63 95 01/25/21 12:00 01/25/21 12:00 01/25/21 12:00 01/25/21 12:00 01/25/21 12:00 Period Temp Pulse Resp BP Sys/Reich Pulse Ox Last 24 Hr 97.8 F-101.1 F 103-124 16-18 93-136/57-63 94-99 Intake and Output 01/25/21 01/25/21 01/25/21 05:59 13:59 21:59 Intake Total 200 240 800 Output Total 365 Balance -165 240 800 Intake & Output: Intake & Output 01/25/21 01/25/21 01/25/21 05:59 13:59 21:59 Intake Total 200 240 800 Output Total 365 Balance -165 240 800 Intake: Oral 200 240 800 Output: Drainage 15 right hip A 5 right hip B 10 Urine Catheter Amount 350 Other: Meal Lunch Percent of Meal Consumed 75% Urine Appearance Clear Uretheral (Carl) Clear Urine Color Dark Yellow Uretheral (Carl) Straw Stool Size Smear Smear Stool Color Brown Brown Stool Consistency Soft Soft # Bowel Movements 1 # of times incontinent of 1 1 Bowels OBJ DATA Labs CBC & Chem 7: 01/25/21 06:01 01/25/21 08:59 Labs: Abnormal Lab Results 01/25/21 01/25/21 01/25/21 08:59 06:01 06:00 WBC 13.7 H RBC 3.23 L Hgb 9.1 L Hct 29.7 L MCHC 30.6 L RDW 19.9 H Plt Count 579 H Neut % (Auto) 88.7 H Lymph % (Auto) 4.2 L Eos % (Auto) Lymph # (Auto) 0.58 L Eos # (Auto) Eosinophils % (Manual) Absolute Neutrophils 12.16 H Platelet Estimate PT 17.5 H INR 1.4 H Anion Gap 7.0 L BUN 34 H Creatinine Glucose 132 H Calcium Albumin 01/24/21 01/23/21 01/23/21 05:15 17:22 17:22 WBC 12.9 H RBC 3.63 L 3.49 L Hgb 10.2 L 10.0 L Hct 32.7 L 31.5 L MCHC RDW 19.9 H 19.9 H Plt Count 569 H 507 H Neut % (Auto) Lymph % (Auto) 4.7 L Eos % (Auto) 14.6 H Lymph # (Auto) 0.60 L Eos # (Auto) 1.88 H Eosinophils % (Manual) 16 H Absolute Neutrophils 9.50 H Platelet Estimate Increased A PT INR Anion Gap 6.0 L BUN Creatinine 0.5 L Glucose Calcium 8.4 L Albumin 2.9 L 01/23/21 17:22 WBC RBC Hgb Hct MCHC RDW Plt Count Neut % (Auto) Lymph % (Auto) Eos % (Auto) Lymph # (Auto) Eos # (Auto) Eosinophils % (Manual) Absolute Neutrophils Platelet Estimate PT 18.0 H INR 1.4 H Anion Gap BUN Creatinine Glucose Calcium Albumin Meds: Medications Acetaminophen (Acetaminophen 325 Mg Tablet) 650 mg PO Q6HP PRN; Protocol PRN Reason: Per Pain Protocol/Fever > 101 Last Admin: 01/24/21 17:44 Dose: 650 mg Documented by: Hydrocodone Bitart/Acetaminophen (Hydrocodone/Apap 5/325mg Tablet) 1 tab PO Q4HP PRN; Protocol PRN Reason: Per Pain Protocol Aztreonam (Aztreonam 1 Gm Vial) 1 gm IV Q8H [facility]; Protocol Last Admin: 01/25/21 14:37 Dose: 1 gm Documented by: Bacitracin (Bacitracin Topical Oint 15 Gm Tube) 1 dose TOPICAL BID [facility] Last Admin: 01/25/21 09:53 Dose: 1 dose Documented by: Daptomycin (Daptomycin 500 Mg Vial) 400 mg IV DAILY@0900 [facility]; Protocol Last Admin: 01/25/21 12:21 Dose: 400 mg Documented by: Diphenhydramine HCl (Diphenhydramine 25 Mg Capsule) 25 mg PO Q4-6HP PRN PRN Reason: Allergic Symptoms Last Admin: 01/25/21 07:50 Dose: 25 mg Documented by: Enoxaparin Sodium (Enoxaparin 40 Mg/0.4 Ml Syringe) 40 mg SQ DAILY [facility] Last Admin: 01/25/21 09:52 Dose: 40 mg Documented by: Fluconazole (Fluconazole 100 Mg Tablet) 200 mg PO DAILY [facility]; Protocol Stop: 01/26/21 09:01 Last Admin: 01/25/21 09:52 Dose: 200 mg Documented by: Metronidazole (Metronidazole 500 Mg Tablet) 500 mg PO Q8 [facility]; Protocol Last Admin: 01/25/21 14:36 Dose: 500 mg Documented by: Ondansetron HCl (Ondansetron 4 Mg/2 Ml Vial) 4 mg IV Q6HP PRN PRN Reason: Nausea And Vomiting Polyethylene Glycol (Polyethylene Glycol 3350 17 Gm Packet) 17 gm PO DAILYP PRN PRN Reason: Constipation Prednisone (Prednisone 20 Mg Tablet) 40 mg PO [facility] Stop: 01/28/21 08:01 Last Admin: 01/25/21 09:52 Dose: 40 mg Documented by: Senna (Sennosides 1 Tablet) 2 tab PO HS [facility] Last Admin: 01/24/21 20:04 Dose: Not Given Documented by: Sodium Chloride (0.9 % Sodium Chloride 10 Ml Syringe) 10 ml IV Q8 [facility] Last Admin: 01/25/21 14:37 Dose: 10 ml Documented by: Warfarin Sodium (Warfarin Per Pharmacy) 1 order PO UD [facility] A/P Narrative A/P Narrative: Assessment: 55 year old male with a history of spina bifida and paraplegia, recurrent DVT, stage IV sacral pressure wound complicated by chronic wound infection and sacral osteomyelitis, prior AKIlikely secondary to acute interstitial nephritis from IV antibiotics, history of MRSA infection, bladder lesion of uncertain etiology underwent stage IV sacral pressure wound and sacral osteomyelitis debridement with bilateral gluteal flap closure on 01/23/[address] Saeed and subsequently admitted to the hospital. The patient had a PICC line for outpatient antibiotics that was removed soon after admission as it appeared to be contaminated and has been in for months according to the patient. The patient also has a carl catheter that was exchanged about a week ago. 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 -Benadryl prn and Prednisone x5 days for rash (and hx of AIN) -Complete prior becca UTI treatment with Diflucan. -Follow surgical cultures. -Coumadin w/ pharmacy -Analgesics prn. -daily CBC, CMP, INR. -Will probably need a PICC line prior to discharge. -Ensure carl catheter exchange every 3 weeks to decrease risk of CAUTI. -DVT ppx: lovenox SQ -Code status: Full -Disposition: SNF vs LTACH Time Spent With Patient Time: Total time spent is greater than 50% in coordination of care (as documented) at patient's floor/unit and/or counseling patient: QUALITY VTE Deep Vein Thrombosis/Pulmonary Embolism Present on Admission: No
[2021-01-25] MEDS: SENNOSIDES 1 TABLET PO SCH (21:12)
[2021-01-26] MEDS: AZTREONAM 1 GM VIAL IV SCH ×3 (06:09→21:35)
[2021-01-26] MEDS: 0.9 % SODIUM CHLORIDE 10 ML SYRINGE IV SCH ×3 (06:10→20:02)
[2021-01-26] MEDS: metroNIDAZOLE 500 MG TABLET PO SCH ×3 (06:10→21:35)
[2021-01-26 07:44] LABS: Basophils # (Auto) 0.09 K/mcL (0.00-0.20); Basophils % (Auto) 0.5 % (0.0-2.0); Eosinophils # (Auto) 3.84 K/mcL (0.00-0.70); Eosinophils % (Auto) 23.3 % (0.0-7.0); Hematocrit 27.2 % (41.0-55.0); Hemoglobin 8.3 g/dL (13.5-16.5); Lymphocytes # (Auto) 1.19 K/mcL (1.50-4.80); Lymphocytes % (Auto) 7.2 % (15.0-49.0); Mean Cell Volume 93.5 fL (80.0-100.0); Mean Corpuscular HGB Conc 30.5 g/dL (31.0-36.0); Mean Platelet Volume 8.9 fL (7.4-10.4); Monocytes # (Auto) 1.75 K/mcL (0.10-0.90); Monocytes % (Auto) 10.6 % (1.0-12.0); Neutrophils % (Auto) 58.4 % (38.0-78.0); Platelet Count 562 K/mcL (140-440); RBC 2.91 M/mcL (4.50-5.90); Red Cell Distribution Width 19.8 % (11.5-14.5); WBC 16.5 K/mcL (4.5-11.0)
[2021-01-26 07:50] LABS: INR 1.6 (0.9-1.1); Prothrombin Time 19.6 sec (11.9-14.5)
[2021-01-26 08:00] LABS: Blood Urea Nitrogen 34 mg/dL (6-20); Calcium 8.5 mg/dL (8.6-10.4); Carbon Dioxide 24 mmol/L (22-30); Chloride 102 mmol/L (96-108); Glomerular Filtration Rate 111; Glucose 108 mg/dL (70-105)
[2021-01-26] MEDS: predniSONE 20 MG TABLET PO SCH (08:37)
[2021-01-26] MEDS: FLUCONAZOLE 100 MG TABLET PO SCH (08:37)
[2021-01-26] MEDS: BACITRACIN TOPICAL OINT 15 GM TUBE TOPICAL SCH ×2 (08:38→20:02)
[2021-01-26] MEDS: DAPTOmycin 500 MG VIAL IV SCH (08:38)
[2021-01-26] MEDS: ENOXAPARIN 40 MG/0.4 ML SYRINGE SQ SCH (08:38)
--- NOTE | 2021-01-26 09:56 | General Surgery Progress Note ---
SUBJECTIVE Subjective Patient information: Note initiated : 01/26/21 at 9:55 am Service Date, if different from initiated Date: [] Patient: Olga Becerra 55 y/o M admitted on 01/23/21 for Wound Flap Closure. Chief Complaint: Pt is now POD #3 from excision and flap closure of sacral pressure ulcer with osteomyelitis Feeling better this morning Constitutional Vitals: Vital Signs Temp Pulse Resp BP Pulse Ox 98.7 F 105 H 16 105/67 97 01/26/21 07:34 01/26/21 08:00 01/26/21 07:34 01/26/21 07:34 01/26/21 07:34 Period Temp Pulse Resp BP Sys/Reich Pulse Ox Last 24 Hr 97.7 F-99.6 F 69-115 16-18 98-117/59-71 94-97 Intake and Output 01/25/21 01/26/21 01/26/21 21:59 05:59 13:59 Intake Total 800 900 Output Total 450 507 Balance 350 393 Weight 144 lb 4.8 oz Intake & Output: Intake & Output 01/25/21 01/26/21 01/26/21 21:59 05:59 13:59 Intake Total 800 900 Output Total 450 507 Balance 350 393 Weight 144 lb 4.8 oz Intake: Oral 800 900 Output: Drainage 7 right hip A 4 right hip B 3 Void Amount 450 500 Other: Meal Dinner Percent of Meal Consumed 100% Urine Appearance Uretheral (Oneal) Clear Urine Color Straw Uretheral (Oneal) Bright Yellow Stool Size Large Stool Color Brown Stool Consistency Dry and Hard # of times incontinent of 1 Bowels Skin Additional comments: Skin incision clean, dry, intact. some increased erythema and bruising at base. Need to monitor A/P Narrative A/P Narrative: Doing well. Cultures from surgery negative thus far. If negative over the next two days then we'll have to discuss post surgical IV management. Sacrum extensively debrided down to healthy bone. NAYE drainage coming down but will leave in a minimim of 10 days Monitor flap, local care; turning patient as airbed not ideal. Discussed placing patient in reverse trandelenberg to eat rather than sitting up to avoid extra stress on surgical site. Bedrest, strict Time Spent With Patient Time: Total time spent is greater than 50% in coordination of care (as documented) at patient's floor/unit and/or counseling patient:
[2021-01-26] MEDS ORDERED: WARFARIN 5 MG TABLET PO ONE (14:00)
--- NOTE | 2021-01-26 17:09 | Internal Med Progress Note ---
SUBJECTIVE Subjective Patient information: Note initiated : 01/26/21 at 5:07 pm Service Date, if different from initiated Date: [] Patient: Olga Becerra 55 y/o M admitted on 01/23/21 for Wound Flap Closure. Chief Complaint: [] Interval history: Mr. 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 Saeed and subsequently admitted to the hospital. The patient has been followed by infectious disease for sacral osteomyelitis. The patient was on broad-spectrum antibiotics prior to admission. Hospital medicine was consulted for medical management during the patient's hospitalization. The plan going forward is placement in a fpc facility for wound care and probably rehab. The patient will likely also need antibiotic coverage going forward for them on certain period of time. When I spoke to the patient postope ratively, he says that his pain is well controlled. He did mention that he would like his left extremity PICC line removed. It sounds like this PICC line has been in place for several months. We discussed CODE STATUS at the end of our conversation, the patient wishes to be full code. 01/24-developed a rash, ID feel secondary to Meropenem. Started Benadryl and Prednisone, Meropenem coverage changed to Aztreonam and Flagyl. Daptomycin continued. 01/25-improved rash, will continue prednisone. 01/26-good appetite, rash resolved so discontinued prednisone, surgery culture- NGTD, leukocytosis likely from prednisone Head: Atraumatic, normal inspection. Eyes: normal appearance, no scleral icterus. Neck: full ROM Respiratory: no respiratory distress. Cardiovascular: normal rate and rhythm, S1, S2. GI/Abdominal: soft, nontender, no guarding. Extremities: full range of motion, nontender. Neurological: CN II-XII intact, bilateral lower extremity weakness Psychiatric: normal mood. Skin: diffuse rash, two NAYE drains present. Constitutional Vitals: Vital Signs Temp Pulse Resp BP Pulse Ox 98.8 F 73 16 104/69 97 01/26/21 16:00 01/26/21 16:00 01/26/21 16:00 01/26/21 16:00 01/26/21 16:00 Period Temp Pulse Resp BP Sys/Reich Pulse Ox Last 24 Hr 97.7 F-99.2 F 69-111 16-18 100-117/59-71 94-97 Intake and Output 01/26/21 01/26/21 01/26/21 05:59 13:59 21:59 Intake Total 900 Output Total 507 Balance 393 Intake & Output: Intake & Output 01/26/21 01/26/21 01/26/21 05:59 13:59 21:59 Intake Total 900 Output Total 507 Balance 393 Intake: Oral 900 Output: Drainage 7 right hip A 4 right hip B 3 Void Amount 500 Other: Meal Lunch Percent of Meal Consumed 75% Feeding Ability Independent Urine Appearance Uretheral (Carl) Clear Urine Color Uretheral (Carl) Bright Yellow Stool Size Large Stool Color Brown Stool Consistency Dry and Hard # of times incontinent of 1 Bowels OBJ DATA Labs CBC & Chem 7: 01/26/21 05:30 01/26/21 05:29 Labs: Abnormal Lab Results 01/26/21 01/26/21 01/26/21 05:30 05:30 05:29 WBC 16.5 H RBC 2.91 L Hgb 8.3 L Hct 27.2 L MCHC 30.5 L RDW 19.8 H Plt Count 562 H Neut % (Auto) Lymph % (Auto) 7.2 L Eos % (Auto) 23.3 H Lymph # (Auto) 1.19 L Island # (Auto) 1.75 H Eos # (Auto) 3.84 H Eosinophils % (Manual) Absolute Neutrophils 9.58 H Platelet Estimate PT 19.6 H INR 1.6 H Anion Gap BUN 34 H Creatinine 0.6 L Glucose 108 H Calcium 8.5 L Albumin 01/25/21 01/25/21 01/25/21 08:59 06:01 06:00 WBC 13.7 H RBC 3.23 L Hgb 9.1 L Hct 29.7 L MCHC 30.6 L RDW 19.9 H Plt Count 579 H Neut % (Auto) 88.7 H Lymph % (Auto) 4.2 L Eos % (Auto) Lymph # (Auto) 0.58 L Island # (Auto) Eos # (Auto) Eosinophils % (Manual) Absolute Neutrophils 12.16 H Platelet Estimate PT 17.5 H INR 1.4 H Anion Gap 7.0 L BUN 34 H Creatinine Glucose 132 H Calcium Albumin 01/24/21 01/23/21 01/23/21 05:15 17:22 17:22 WBC 12.9 H RBC 3.63 L 3.49 L Hgb 10.2 L 10.0 L Hct 32.7 L 31.5 L MCHC RDW 19.9 H 19.9 H Plt Count 569 H 507 H Neut % (Auto) Lymph % (Auto) 4.7 L Eos % (Auto) 14.6 H Lymph # (Auto) 0.60 L Island # (Auto) Eos # (Auto) 1.88 H Eosinophils % (Manual) 16 H Absolute Neutrophils 9.50 H Platelet Estimate Increased A PT INR Anion Gap 6.0 L BUN Creatinine 0.5 L Glucose Calcium 8.4 L Albumin 2.9 L 01/23/21 17:22 WBC RBC Hgb Hct MCHC RDW Plt Count Neut % (Auto) Lymph % (Auto) Eos % (Auto) Lymph # (Auto) Island # (Auto) Eos # (Auto) Eosinophils % (Manual) Absolute Neutrophils Platelet Estimate PT 18.0 H INR 1.4 H Anion Gap BUN Creatinine Glucose Calcium Albumin Meds: Medications Acetaminophen (Acetaminophen 325 Mg Tablet) 650 mg PO Q6HP PRN; Protocol PRN Reason: Per Pain Protocol/Fever > 101 Last Admin: 01/24/21 17:44 Dose: 650 mg Documented by: Hydrocodone Bitart/Acetaminophen (Hydrocodone/Apap 5/325mg Tablet) 1 tab PO Q4HP PRN; Protocol PRN Reason: Per Pain Protocol Aztreonam (Aztreonam 1 Gm Vial) 1 gm IV Q8H [facility]; Protocol Last Admin: 01/26/21 15:55 Dose: 1 gm Documented by: Bacitracin (Bacitracin Topical Oint 15 Gm Tube) 1 dose TOPICAL BID [facility]ATH[facility] Last Admin: 01/26/21 08:38 Dose: 1 dose Documented by: Daptomycin (Daptomycin 500 Mg Vial) 400 mg IV DAILY@0900 [facility]; Protocol Last Admin: 01/26/21 08:38 Dose: 400 mg Documented by: Diphenhydramine HCl (Diphenhydramine 25 Mg Capsule) 25 mg PO Q4-6HP PRN PRN Reason: Allergic Symptoms Last Admin: 01/25/21 07:50 Dose: 25 mg Documented by: Enoxaparin Sodium (Enoxaparin 40 Mg/0.4 Ml Syringe) 40 mg SQ DAILY [facility] Last Admin: 01/26/21 08:38 Dose: 40 mg Documented by: Metronidazole (Metronidazole 500 Mg Tablet) 500 mg PO Q8 [facility]; Protocol Last Admin: 01/26/21 15:55 Dose: 500 mg Documented by: Ondansetron HCl (Ondansetron 4 Mg/2 Ml Vial) 4 mg IV Q6HP PRN PRN Reason: Nausea And Vomiting Polyethylene Glycol (Polyethylene Glycol 3350 17 Gm Packet) 17 gm PO DAILYP PRN PRN Reason: Constipation Senna (Sennosides 1 Tablet) 2 tab PO HS [facility] Last Admin: 01/25/21 21:12 Dose: Not Given Documented by: Sodium Chloride (0.9 % Sodium Chloride 10 Ml Syringe) 10 ml IV Q8 [facility] Last Admin: 01/26/21 15:56 Dose: 10 ml Documented by: Warfarin Sodium (Warfarin Per Pharmacy) 1 order PO UD [facility] A/P Narrative A/P Narrative: Assessment: 55 year old male with a history of spina bifida and paraplegia, recurrent DVT, stage IV sacral pressure wound complicated by chronic wound infection and sacral osteomyelitis, prior AKIlikely secondary to acute interstitial nephritis from IV antibiotics, history of MRSA infection, bladder lesion of uncertain etiology underwent stage IV sacral pressure wound and sacral osteomyelitis debridement with bilateral gluteal flap closure on 01/23/[address] Saeed and subsequently admitted to the hospital. The patient had a PICC line for outpatient antibiotics that was removed soon after admission as it appeared to be contaminated and has been in for months according to the patient. The patient also has a carl catheter that was exchanged about a week ago. 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 -Discontinued Prednisone -Complete prior becca UTI treatment with Diflucan. -Follow surgical cultures. -Coumadin w/ pharmacy -Analgesics prn. -Will probably need a PICC line prior to discharge-per ID. -Ensure carl catheter exchange every 3 weeks to decrease risk of CAUTI. -DVT ppx: lovenox SQ -Code status: Full -Disposition: SNF vs LTACH Time Spent With Patient Time: Total time spent is greater than 50% in coordination of care (as documented) at patient's floor/unit and/or counseling patient: QUALITY VTE Deep Vein Thrombosis/Pulmonary Embolism Present on Admission: No
[2021-01-26] MEDS: SENNOSIDES 1 TABLET PO SCH (20:02)
[2021-01-27] MEDS: 0.9 % SODIUM CHLORIDE 10 ML SYRINGE IV SCH ×3 (05:38→22:58)
[2021-01-27] MEDS: AZTREONAM 1 GM VIAL IV SCH ×3 (05:38→22:58)
[2021-01-27] MEDS: metroNIDAZOLE 500 MG TABLET PO SCH ×3 (05:38→22:58)
--- NOTE | 2021-01-27 07:02 | Operative Note ---
DATE OF OPERATION: 01/23/2021 PREOPERATIVE DIAGNOSIS: Stage IV sacral pressure sore with osteomyelitis of sacrum. POSTOPERATIVE DIAGNOSIS: Stage IV sacral pressure sore with osteomyelitis of sacrum. PROCEDURE PERFORMED: Excision of a pressure sore with resection of skin, subcutaneous fat, fascia, muscle, and bone. Additional procedure: Bilateral gluteus estella flap closure of sacral defect. SURGEON: Augie Saeed M.D. EDUCATION SITE MANAGER: SHORTY Chambers ANESTHESIA: Conscious sedation. COMPLICATIONS: None. DRAINS: Two 7 mm NAYE drains were placed. SPECIMENS: Post-irrigation and debridement culture of sacral bone was sent to microbiology. INDICATIONS: The patient is a 55-year-old male with spina bifida. He developed a sacral pressure sore about 6 weeks ago, the patient developed osteomyelitis from a wound swab and has been treated with antibiotics for his bony infection. The patient is now ready for debridement of all nonviable bone and closure to help with healing and prevent recurrence. The operative procedure was thus indicated. DESCRIPTION OF PROCEDURE: The patient identified in the holding area where the planned procedure was discussed with him. He wished to proceed and consented freely. He was taken to the operating room. Two grams of Ancef were given IV. Patient was then placed prone on the operating table with all of his pressure points adequately protected. Oneal catheter was placed in a way to avoid additional trauma. The patient's entire buttock and perineal area was prepped and draped sterilely. The open wound was painted with blue dye for the purpose of debriding all nonviable and exposed tissue. The ulcer itself was resected first resecting the entire skin margin and then dissecting down into the exposed fascia muscle and then down to the bone. Additionally, the bone was curetted and the rongeur was used to debride all obvious involved bone, certainly all soft bone. There was good healthy bleeding bone at the base. These wounds were irrigated out with 3 liters of sterile lactated Ringer's solution and a post-debridement and irrigation culture was obtained from the bone with a fresh rongeur and sent to microbiology. Given the open wound, my options were some sort of a rotational flap, but with his osteomyelitis, I preferred something that would give him good muscle coverage over the exposed bone. One gluteus muscle would not reach much past the midline, so I elected to elevate both gluteus muscles across the midline. This was done, the gluteus from the overlying skin and inferiorly from the sacral bone. Meticulous hemostasis was achieved with electrocautery. The gluteus on the contralateral side was also elevated in a similar fashion. Enough muscle was obtained so that the muscle could be pulled across the midline with appropriate tension. Having been content with the muscle advancement, two drains were placed, first into the deep space directly on the bone. The drain was secured with 3-0 nylon and then the muscle was then approximated with multiple interrupted 2-0 Vicryl sutures. Between the muscle and the skin a second drain was placed, this also via a separate stab incision and also secured with 3-0 nylon. The skin was then closed using interrupted 0 Monocryl sutures to approximate the dermis and multiple horizontal mattress and simple sutures of 3-0 nylon and surgical clips. Having been content with the operative procedure and the relative minimal tension on the skin, the wounds were then dressed with bacitracin. I initially was concerned about contamination of stool, but I was afraid if I covered the wound, the stool would enter the dressing and stay on the wound for an extended period of time. The patient was then rolled onto his air bed and taken over to the recovery room, he was awake, alert, and appropriate. There were no complications. Sponge and needle counts were correct, and the patient tolerated the procedure well. EMERALD:geneva Job ID: [id number] Doc ID: [id number] Tino Saeed MD
[2021-01-27 07:54] LABS: Basophils # (Auto) 0.06 K/mcL (0.00-0.20); Basophils % (Auto) 0.4 % (0.0-2.0); Eosinophils # (Auto) 2.63 K/mcL (0.00-0.70); Eosinophils % (Auto) 18.3 % (0.0-7.0); Hematocrit 26.8 % (41.0-55.0); Hemoglobin 8.2 g/dL (13.5-16.5); Lymphocytes # (Auto) 1.73 K/mcL (1.50-4.80); Mean Cell Volume 91.2 fL (80.0-100.0); Mean Corpuscular HGB Conc 30.6 g/dL (31.0-36.0); Mean Platelet Volume 8.8 fL (7.4-10.4); Monocytes # (Auto) 1.72 K/mcL (0.10-0.90); Monocytes % (Auto) 11.9 % (1.0-12.0); Neutrophils % (Auto) 57.4 % (38.0-78.0); Platelet Count 615 K/mcL (140-440); RBC 2.94 M/mcL (4.50-5.90); Red Cell Distribution Width 19.8 % (11.5-14.5); WBC 14.4 K/mcL (4.5-11.0)
[2021-01-27 08:18] LABS: INR 2.1 (0.9-1.1); Prothrombin Time 24.2 sec (11.9-14.5)
[2021-01-27 08:43] LABS: Blood Urea Nitrogen 35 mg/dL (6-20); Calcium 8.4 mg/dL (8.6-10.4); Carbon Dioxide 23 mmol/L (22-30); Chloride 103 mmol/L (96-108); Glomerular Filtration Rate 105; Glucose 99 mg/dL (70-105)
[2021-01-27] MEDS: DAPTOmycin 500 MG VIAL IV SCH (09:10)
[2021-01-27] MEDS: ENOXAPARIN 40 MG/0.4 ML SYRINGE SQ SCH (09:10)
[2021-01-27] MEDS: BACITRACIN TOPICAL OINT 15 GM TUBE TOPICAL SCH ×2 (09:17→20:52)
--- NOTE | 2021-01-27 13:58 | Internal Med Progress Note ---
SUBJECTIVE Subjective Patient information: Note initiated : 01/27/21 at 1:56 pm Service Date, if different from initiated Date: [] Patient: Olga Becerra 55 y/o M admitted on 01/23/21 for Wound Flap Closure. Chief Complaint: [] Interval history: Mr. 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 Saeed and subsequently admitted to the hospital. The patient has been followed by infectious disease for sacral osteomyelitis. The patient was on broad-spectrum antibiotics prior to admission. Hospital medicine was consulted for medical management during the patient's hospitalization. The plan going forward is placement in a correction facility for wound care and probably rehab. The patient will likely also need antibiotic coverage going forward for them on certain period of time. When I spoke to the patient postope ratively, he says that his pain is well controlled. He did mention that he would like his left extremity PICC line removed. It sounds like this PICC line has been in place for several months. We discussed CODE STATUS at the end of our conversation, the patient wishes to be full code. 01/24-developed a rash, ID feel secondary to Meropenem. Started Benadryl and Prednisone, Meropenem coverage changed to Aztreonam and Flagyl. Daptomycin continued. 01/25-improved rash, will continue prednisone. 01/26-good appetite, rash resolved so discontinued prednisone, surgery culture- NGTD, leukocytosis likely from prednisone 01/27-leukocytosis improving so very likely was from prednisone, cultures showing no growth to date, infectious disease on vacation so unable to get recommendations for IV antibiotics, possible discharge to [facility]. Head: Atraumatic, normal inspection. Eyes: normal appearance, no scleral icterus. Neck: full ROM Respiratory: no respiratory distress. Cardiovascular: normal rate and rhythm, S1, S2. GI/Abdominal: soft, nontender, no guarding. Extremities: full range of motion, nontender. Neurological: CN II-XII intact, bilateral lower extremity weakness Psychiatric: normal mood. Skin: diffuse rash, two NAYE drains present. Constitutional Vitals: Vital Signs Temp Pulse Resp BP Pulse Ox 98.4 F 89 16 114/76 95 01/27/21 12:00 01/27/21 12:00 01/27/21 12:00 01/27/21 12:00 01/27/21 12:00 Period Temp Pulse Resp BP Sys/Reich Pulse Ox Last 24 Hr 97.9 F-98.8 F 73-98 16-18 104-117/68-76 95-97 Intake and Output 01/26/21 01/27/21 01/27/21 21:59 05:59 13:59 Intake Total 600 Output Total 1000 468 Balance -400 -468 Weight 66.678 kg Intake & Output: Intake & Output 01/26/21 01/27/21 01/27/21 21:59 05:59 13:59 Intake Total 600 Output Total 1000 468 Balance -400 -468 Weight 66.678 kg Intake: Oral 600 Output: Drainage 18 right hip A 4 right hip B 14 Urine Catheter Amount 1000 450 Other: Meal Lunch Percent of Meal Consumed 75% Feeding Ability Independent Urine Appearance Cloudy Clear Uretheral (Carl) Clear Clear Urine Color Dark Yellow Straw Uretheral (Carl) Dark Yellow Bright Yellow Stool Size Moderate Smear Stool Color Brown Brown Stool Consistency Dry and Hard # Bowel Movements 1 # of times incontinent of 1 Bowels OBJ DATA Labs CBC & Chem 7: 01/27/21 05:40 01/27/21 05:40 Labs: Abnormal Lab Results 01/27/21 01/27/21 01/27/21 05:40 05:40 05:40 WBC 14.4 H RBC 2.94 L Hgb 8.2 L Hct 26.8 L MCHC 30.6 L RDW 19.8 H Plt Count 615 H Neut % (Auto) Lymph % (Auto) 12.0 L Eos % (Auto) 18.3 H Lymph # (Auto) [place] # (Auto) 1.72 H Eos # (Auto) 2.63 H Absolute Neutrophils 8.26 H PT 24.2 H INR 2.1 H Anion Gap BUN 35 H Creatinine Glucose Calcium 8.4 L 01/26/21 01/26/21 01/26/21 05:30 05:30 05:29 WBC 16.5 H RBC 2.91 L Hgb 8.3 L Hct 27.2 L MCHC 30.5 L RDW 19.8 H Plt Count 562 H Neut % (Auto) Lymph % (Auto) 7.2 L Eos % (Auto) 23.3 H Lymph # (Auto) 1.19 L [place] # (Auto) 1.75 H Eos # (Auto) 3.84 H Absolute Neutrophils 9.58 H PT 19.6 H INR 1.6 H Anion Gap BUN 34 H Creatinine 0.6 L Glucose 108 H Calcium 8.5 L 01/25/21 01/25/21 01/25/21 08:59 06:01 06:00 WBC 13.7 H RBC 3.23 L Hgb 9.1 L Hct 29.7 L MCHC 30.6 L RDW 19.9 H Plt Count 579 H Neut % (Auto) 88.7 H Lymph % (Auto) 4.2 L Eos % (Auto) Lymph # (Auto) 0.58 L [place] # (Auto) Eos # (Auto) Absolute Neutrophils 12.16 H PT 17.5 H INR 1.4 H Anion Gap 7.0 L BUN 34 H Creatinine Glucose 132 H Calcium Meds: Medications Acetaminophen (Acetaminophen 325 Mg Tablet) 650 mg PO Q6HP PRN; Protocol PRN Reason: Per Pain Protocol/Fever > 101 Last Admin: 01/24/21 17:44 Dose: 650 mg Documented by: Hydrocodone Bitart/Acetaminophen (Hydrocodone/Apap 5/325mg Tablet) 1 tab PO Q4HP PRN; Protocol PRN Reason: Per Pain Protocol Aztreonam (Aztreonam 1 Gm Vial) 1 gm IV Q8H [facility]; Protocol Last Admin: 01/27/21 05:38 Dose: 1 gm Documented by: Bacitracin (Bacitracin Topical Oint 15 Gm Tube) 1 dose TOPICAL BID [facility] Last Admin: 01/27/21 09:17 Dose: 1 dose Documented by: Daptomycin (Daptomycin 500 Mg Vial) 400 mg IV DAILY@0900 [facility]; Protocol Last Admin: 01/27/21 09:10 Dose: 400 mg Documented by: Diphenhydramine HCl (Diphenhydramine 25 Mg Capsule) 25 mg PO Q4-6HP PRN PRN Reason: Allergic Symptoms Last Admin: 01/25/21 07:50 Dose: 25 mg Documented by: Metronidazole (Metronidazole 500 Mg Tablet) 500 mg PO Q8 [facility]; Protocol Last Admin: 01/27/21 05:38 Dose: 500 mg Documented by: Ondansetron HCl (Ondansetron 4 Mg/2 Ml Vial) 4 mg IV Q6HP PRN PRN Reason: Nausea And Vomiting Polyethylene Glycol (Polyethylene Glycol 3350 17 Gm Packet) 17 gm PO DAILYP PRN PRN Reason: Constipation Senna (Sennosides 1 Tablet) 2 tab PO HS [facility] Last Admin: 01/26/21 20:02 Dose: Not Given Documented by: Sodium Chloride (0.9 % Sodium Chloride 10 Ml Syringe) 10 ml IV Q8 [facility] Last Admin: 01/27/21 05:38 Dose: 10 ml Documented by: Warfarin Sodium (Warfarin Per Pharmacy) 1 order PO UD [facility] Warfarin Sodium (Warfarin 3 Mg Tablet) 3 mg PO ONCE@1400 [facility] Stop: 01/27/21 14:01 A/P Narrative A/P Narrative: Assessment: 55 year old male with a history of spina bifida and paraplegia, recurrent DVT, stage IV sacral pressure wound complicated by chronic wound infection and sacral osteomyelitis, prior AKIlikely secondary to acute interstitial nephritis from IV antibiotics, history of MRSA infection, bladder lesion of uncertain etiology underwent stage IV sacral pressure wound and sacral osteomyelitis debridement with bilateral gluteal flap closure on 01/23/[address] Saeed and subsequently admitted to the hospital. The patient had a PICC line for outpatient antibiotics that was removed soon after admission as it appeared to be contaminated and has been in for months according to the patient. The patient also has a carl catheter that was exchanged about a week ago. 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 -Follow surgical cultures. -Coumadin w/ pharmacy -Analgesics prn. -Will probably need a PICC line prior to discharge-per ID. -Ensure carl catheter exchange every 3 weeks to decrease risk of CAUTI. -DVT ppx: on coumadin -Code status: Full -Disposition: SNF vs LTACH Time Spent With Patient Time: Total time spent is greater than 50% in coordination of care (as documented) at patient's floor/unit and/or counseling patient: QUALITY VTE Deep Vein Thrombosis/Pulmonary Embolism Present on Admission: No
[2021-01-27] MEDS ORDERED: WARFARIN 3 MG TABLET PO ONE (14:00)
--- NOTE | 2021-01-27 15:07 | General Surgery Progress Note ---
SUBJECTIVE Subjective Patient information: Note initiated : 01/27/21 at 3:05 pm Service Date, if different from initiated Date: [] Patient: Olga Becerra 55 y/o M admitted on 01/23/21 for Wound Flap Closure. Chief Complaint: POD #4 from excision and flap closure for sacral ulcer with osteomyelitis Constitutional Vitals: Vital Signs Temp Pulse Resp BP Pulse Ox 98.4 F 89 16 114/76 95 01/27/21 12:00 01/27/21 12:00 01/27/21 12:00 01/27/21 12:00 01/27/21 12:00 Period Temp Pulse Resp BP Sys/Reich Pulse Ox Last 24 Hr 97.9 F-98.8 F 73-98 16-18 104-117/68-76 95-97 Intake and Output 01/27/21 01/27/21 01/27/21 05:59 13:59 21:59 Output Total 468 Balance -468 Intake & Output: Intake & Output 01/27/21 01/27/21 01/27/21 05:59 13:59 21:59 Output Total 468 Balance -468 Output: Drainage 18 right hip A 4 right hip B 14 Urine Catheter Amount 450 Other: Urine Appearance Clear Uretheral (Oneal) Clear Urine Color Straw Uretheral (Oneal) Bright Yellow Stool Size Smear Stool Color Brown # Bowel Movements 1 Skin Additional comments: Surgical site clean, dry, intact. Some increased redness but I think this is from his Depends pad on the incision. No drainage or odor. A/P Narrative A/P Narrative: POD #4 from excision and flap closure of his sacral ulcer. His surgical post-debridement cultures show no growth and after three days no growth on the anaerobic cx. I will discuss with Dr. Pittman and Dr. Cobos regarding whether he still needs to be on Zyvox and if so for how long. I will recheck the patient tomorrow. He's making good progress. Time Spent With Patient Time: Total time spent is greater than 50% in coordination of care (as documented) at patient's floor/unit and/or counseling patient:
[2021-01-27] MEDS: SENNOSIDES 1 TABLET PO SCH (20:52)
[2021-01-28] MEDS: metroNIDAZOLE 500 MG TABLET PO SCH ×3 (05:52→21:53)
[2021-01-28] MEDS: 0.9 % SODIUM CHLORIDE 10 ML SYRINGE IV SCH ×3 (05:52→21:52)
[2021-01-28] MEDS: AZTREONAM 1 GM VIAL IV SCH ×3 (05:52→21:52)
[2021-01-28 07:39] LABS: Basophils # (Auto) 0.12 K/mcL (0.00-0.20); Basophils % (Auto) 0.9 % (0.0-2.0); Eosinophils % (Auto) 37.6 % (0.0-7.0); Hematocrit 29.1 % (41.0-55.0); Lymphocytes # (Auto) 2.01 K/mcL (1.50-4.80); Lymphocytes % (Auto) 15.7 % (15.0-49.0); Mean Cell Volume 91.8 fL (80.0-100.0); Mean Corpuscular HGB Conc 30.9 g/dL (31.0-36.0); Mean Platelet Volume 8.8 fL (7.4-10.4); Monocytes % (Auto) 10.2 % (1.0-12.0); Neutrophils % (Auto) 35.6 % (38.0-78.0); Platelet Count 666 K/mcL (140-440); RBC 3.17 M/mcL (4.50-5.90); Red Cell Distribution Width 20.2 % (11.5-14.5); WBC 12.8 K/mcL (4.5-11.0)
[2021-01-28 08:26] LABS: Blood Urea Nitrogen 39 mg/dL (6-20); Calcium 8.6 mg/dL (8.6-10.4); Carbon Dioxide 25 mmol/L (22-30); Chloride 105 mmol/L (96-108); Glomerular Filtration Rate 105; Glucose 79 mg/dL (70-105)
[2021-01-28 08:35] LABS: INR 2.2 (0.9-1.1); Prothrombin Time 25.3 sec (11.9-14.5)
[2021-01-28] MEDS: DAPTOmycin 500 MG VIAL IV SCH (10:10)
[2021-01-28] MEDS: BACITRACIN TOPICAL OINT 15 GM TUBE TOPICAL SCH ×2 (10:26→21:30)
--- NOTE | 2021-01-28 11:33 | Internal Med Progress Note ---
SUBJECTIVE Subjective Patient information: Note initiated : 01/28/21 at 11:30 am Service Date, if different from initiated Date: [] Patient: Olga Becerra 55 y/o M admitted on 01/23/21 for Wound Flap Closure. Chief Complaint: [] Interval history: Mr. 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 Saeed and subsequently admitted to the hospital. The patient has been followed by infectious disease for sacral osteomyelitis. The patient was on broad-spectrum antibiotics prior to admission. Hospital medicine was consulted for medical management during the patient's hospitalization. The plan going forward is placement in a shelter facility for wound care and probably rehab. The patient will likely also need antibiotic coverage going forward for them on certain period of time. When I spoke to the patient postop eratively, he says that his pain is well controlled. He did mention that he would like his left extremity PICC line removed. It sounds like this PICC line has been in place for several months. We discussed CODE STATUS at the end of our conversation, the patient wishes to be full code. 01/24-developed a rash, ID feel secondary to Meropenem. Started Benadryl and Prednisone, Meropenem coverage changed to Aztreonam and Flagyl. Daptomycin continued. 01/25-improved rash, will continue prednisone. 01/26-good appetite, rash resolved so discontinued prednisone, surgery culture- NGTD, leukocytosis likely from prednisone 01/27-leukocytosis improving so very likely was from prednisone, cultures showing no growth to date, infectious disease on vacation so unable to get recommendations for IV antibiotics, possible discharge to local SNF vs [facility] depending on plan for antibiotic treatment. Plastic surgery will call ID to discuss plan. 01/28-awaiting final antibiotic plan that will inform disposition. Head: Atraumatic, normal inspection. Eyes: normal appearance, no scleral icterus. Neck: full ROM Respiratory: no respiratory distress. Cardiovascular: normal rate and rhythm, S1, S2. GI/Abdominal: soft, nontender, no guarding. Extremities: full range of motion, nontender. Neurological: CN II-XII intact, bilateral lower extremity weakness Psychiatric: normal mood. Skin: diffuse rash, two NAYE drains present. Constitutional Vitals: Vital Signs Temp Pulse Resp BP Pulse Ox 98.1 F 104 H 16 121/79 97 01/28/21 08:00 01/28/21 08:00 01/28/21 08:00 01/28/21 08:00 01/28/21 08:00 Period Temp Pulse Resp BP Sys/Reich Pulse Ox Last 24 Hr 98.1 F-98.7 F 89-112 16-18 90-121/52-79 95-97 Intake and Output 01/27/21 01/28/21 01/28/21 21:59 05:59 13:59 Intake Total 1040 175 Output Total 765 585 Balance 275 -410 Weight 66.088 kg Intake & Output: Intake & Output 01/27/21 01/28/21 01/28/21 21:59 05:59 13:59 Intake Total 1040 175 Output Total 765 585 Balance 275 -410 Weight 66.088 kg Intake: Oral 1040 175 Output: Drainage 15 10 right hip A 5 4 right hip B 10 6 Urine Catheter Amount 750 Void Amount 575 Other: Meal Dinner Percent of Meal Consumed 100% Feeding Ability Independent Urine Appearance Clear Clear Uretheral (Carl) Clear Urine Color Bright Yellow Bright Yellow Uretheral (Carl) Bright Yellow Urine Odor Normal Uretheral (Carl) Normal Stool Color Brown Stool Consistency Soft Formed OBJ DATA Labs CBC & Chem 7: 01/28/21 05:20 01/28/21 05:20 Labs: Abnormal Lab Results 01/28/21 01/28/21 01/28/21 05:20 05:20 05:20 WBC 12.8 H RBC 3.17 L Hgb 9.0 L Hct 29.1 L MCHC 30.9 L RDW 20.2 H Plt Count 666 H Neut % (Auto) 35.6 L Lymph % (Auto) Eos % (Auto) 37.6 H Lymph # (Auto) [place] # (Auto) 1.30 H Eos # (Auto) 4.80 H Absolute Neutrophils PT 25.3 H INR 2.2 H BUN 39 H Creatinine Glucose Calcium 01/27/21 01/27/21 01/27/21 05:40 05:40 05:40 WBC 14.4 H RBC 2.94 L Hgb 8.2 L Hct 26.8 L MCHC 30.6 L RDW 19.8 H Plt Count 615 H Neut % (Auto) Lymph % (Auto) 12.0 L Eos % (Auto) 18.3 H Lymph # (Auto) [place] # (Auto) 1.72 H Eos # (Auto) 2.63 H Absolute Neutrophils 8.26 H PT 24.2 H INR 2.1 H BUN 35 H Creatinine Glucose Calcium 8.4 L 01/26/21 01/26/21 01/26/21 05:30 05:30 05:29 WBC 16.5 H RBC 2.91 L Hgb 8.3 L Hct 27.2 L MCHC 30.5 L RDW 19.8 H Plt Count 562 H Neut % (Auto) Lymph % (Auto) 7.2 L Eos % (Auto) 23.3 H Lymph # (Auto) 1.19 L [place] # (Auto) 1.75 H Eos # (Auto) 3.84 H Absolute Neutrophils 9.58 H PT 19.6 H INR 1.6 H BUN 34 H Creatinine 0.6 L Glucose 108 H Calcium 8.5 L Meds: Medications Acetaminophen (Acetaminophen 325 Mg Tablet) 650 mg PO Q6HP PRN; Protocol PRN Reason: Per Pain Protocol/Fever > 101 Last Admin: 01/24/21 17:44 Dose: 650 mg Documented by: Hydrocodone Bitart/Acetaminophen (Hydrocodone/Apap 5/325mg Tablet) 1 tab PO Q4HP PRN; Protocol PRN Reason: Per Pain Protocol Aztreonam (Aztreonam 1 Gm Vial) 1 gm IV Q8H [facility]; Protocol Last Admin: 01/28/21 05:52 Dose: 1 gm Documented by: Bacitracin (Bacitracin Topical Oint 15 Gm Tube) 1 dose TOPICAL BID [facility] Last Admin: 01/28/21 10:26 Dose: 1 dose Documented by: Daptomycin (Daptomycin 500 Mg Vial) 400 mg IV DAILY@0900 [facility]; Protocol Last Admin: 01/28/21 10:10 Dose: 400 mg Documented by: Diphenhydramine HCl (Diphenhydramine 25 Mg Capsule) 25 mg PO Q4-6HP PRN PRN Reason: Allergic Symptoms Last Admin: 01/25/21 07:50 Dose: 25 mg Documented by: Metronidazole (Metronidazole 500 Mg Tablet) 500 mg PO Q8 [facility]; Protocol Last Admin: 01/28/21 05:52 Dose: 500 mg Documented by: Ondansetron HCl (Ondansetron 4 Mg/2 Ml Vial) 4 mg IV Q6HP PRN PRN Reason: Nausea And Vomiting Polyethylene Glycol (Polyethylene Glycol 3350 17 Gm Packet) 17 gm PO DAILYP PRN PRN Reason: Constipation Senna (Sennosides 1 Tablet) 2 tab PO HS [facility] Last Admin: 01/27/21 20:52 Dose: Not Given Documented by: Sodium Chloride (0.9 % Sodium Chloride 10 Ml Syringe) 10 ml IV Q8 [facility] Last Admin: 01/28/21 05:52 Dose: 10 ml Documented by: Warfarin Sodium (Warfarin Per Pharmacy) 1 order PO UD [facility] Warfarin Sodium (Warfarin 3 Mg Tablet) 3 mg PO ONCE@1400 ONE Stop: 01/28/21 14:01 A/P Narrative A/P Narrative: Assessment: 55 year old male with a history of spina bifida and paraplegia, recurrent DVT, stage IV sacral pressure wound complicated by chronic wound infection and sacral osteomyelitis, prior AKIlikely secondary to acute interstitial nephritis from IV antibiotics, history of MRSA infection, bladder lesion of uncertain etiology underwent stage IV sacral pressure wound and sacral osteomyelitis debridement with bilateral gluteal flap closure on 01/23/[address] Saeed and subsequently admitted to the hospital. The patient had a PICC line for outpatient antibiotics that was removed soon after admission as it appeared to be contaminated and has been in for months according to the patient. The patient also has a carl catheter that was exchanged about a week ago. 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 -Following surgical cultures-NGTD. -Coumadin w/ pharmacy -Analgesics prn. -Ensure carl catheter exchange every 3 weeks to decrease risk of CAUTI. -DVT ppx: on coumadin -Code status: Full -Disposition: SNF vs LTACH Time Spent With Patient Time: Total time spent is greater than 50% in coordination of care (as documented) at patient's floor/unit and/or counseling patient: QUALITY VTE Deep Vein Thrombosis/Pulmonary Embolism Present on Admission: No
--- NOTE | 2021-01-28 12:47 | General Surgery Progress Note ---
SUBJECTIVE Subjective Patient information: Note initiated : 01/28/21 at 12:45 pm Service Date, if different from initiated Date: [] Patient: Olga Becerra 55 y/o M admitted on 01/23/21 for Wound Flap Closure. Chief Complaint: POD #5. Doing well. Eating well. Feels okay Constitutional Vitals: Vital Signs Temp Pulse Resp BP Pulse Ox 98.1 F 104 H 16 121/79 97 01/28/21 08:00 01/28/21 08:00 01/28/21 08:00 01/28/21 08:00 01/28/21 08:00 Period Temp Pulse Resp BP Sys/Reich Pulse Ox Last 24 Hr 98.1 F-98.7 F 98-112 16-18 90-121/52-79 95-97 Intake and Output 01/27/21 01/28/21 01/28/21 21:59 05:59 13:59 Intake Total 1040 175 Output Total 765 585 Balance 275 -410 Weight 145 lb 11.2 oz Intake & Output: Intake & Output 01/27/21 01/28/21 01/28/21 21:59 05:59 13:59 Intake Total 1040 175 Output Total 765 585 Balance 275 -410 Weight 145 lb 11.2 oz Intake: Oral 1040 175 Output: Drainage 15 10 right hip A 5 4 right hip B 10 6 Urine Catheter Amount 750 Void Amount 575 Other: Meal Dinner Percent of Meal Consumed 100% Feeding Ability Independent Urine Appearance Clear Clear Uretheral (Oneal) Clear Urine Color Bright Yellow Bright Yellow Uretheral (Oneal) Bright Yellow Urine Odor Normal Uretheral (Oneal) Normal Stool Color Brown Stool Consistency Soft Formed Skin Additional comments: Surgical site intact. Still with maceration at very inferior portion of incision. I think better air mattress offloading would be helpful. Staff is still turning him. No evidence of infection A/P Narrative A/P Narrative: s/p excision of infected bone and flap closure of sacral ulcer. Cultures to date show no growth. Wound is clean, and clinically he's improving. I think at this point we can alter his antibiotic regimen based on his cultures and clinical status. If MRSA is still a concern then perhaps discharging the patient on IV antibiotics; and Doxacycline and Septra should suffice. And with muscle flap closure directly over the bone a total of 14 days should be adequate. NAYE drains will stay in 10-14 days total We still need to evaluate what's going on with his bladder but it would be nice to get his wounds better healed and then a more formal outpatient workup can be done I will discuss this with Dr. Pennington Time Spent With Patient Time: Total time spent is greater than 50% in coordination of care (as documented) at patient's floor/unit and/or counseling patient:
--- NOTE | 2021-01-28 13:19 | Internal Med Progress Note ---
SUBJECTIVE Subjective Patient information: Note initiated : 01/28/21 at 1:16 pm Service Date, if different from initiated Date: [] Patient: Olga Becerra 55 y/o M admitted on 01/23/21 for Wound Flap Closure. Chief Complaint: [] Interval history: Mr. 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 Saeed and subsequently admitted to the hospital. The patient has been followed by infectious disease for sacral osteomyelitis. The patient was on broad-spectrum antibiotics prior to admission. Hospital medicine was consulted for medical management during the patient's hospitalization. The plan going forward is placement in a residential facility for wound care and probably rehab. The patient will likely also need antibiotic coverage going forward for them on certain period of time. When I spoke to the patient postope ratively, he says that his pain is well controlled. He did mention that he would like his left extremity PICC line removed. It sounds like this PICC line has been in place for several months. We discussed CODE STATUS at the end of our conversation, the patient wishes to be full code. 01/24-developed a rash, ID feel secondary to Meropenem. Started Benadryl and Prednisone, Meropenem coverage changed to Aztreonam and Flagyl. Daptomycin continued. 01/25-improved rash, will continue prednisone. 01/26-good appetite, rash resolved so discontinued prednisone, surgery culture- NGTD, leukocytosis likely from prednisone 01/27-leukocytosis improving so very likely was from prednisone, cultures showing no growth to date, infectious disease on vacation so unable to get recommendations for IV antibiotics, possible discharge to local SNF vs [facility] depending on plan for antibiotic treatment. Plastic surgery will call ID to discuss plan. 01/28-awaiting final antibiotic plan that will inform disposition. 01/29 Constitutional Vitals: Vital Signs Temp Pulse Resp BP Pulse Ox 98.1 F 104 H 16 121/79 97 01/28/21 08:00 01/28/21 08:00 01/28/21 08:00 01/28/21 08:00 01/28/21 08:00 Period Temp Pulse Resp BP Sys/Reich Pulse Ox Last 24 Hr 98.1 F-98.7 F 98-112 16-18 90-121/52-79 95-97 Intake and Output 01/27/21 01/28/21 01/28/21 21:59 05:59 13:59 Intake Total 1040 175 Output Total 765 585 Balance 275 -410 Weight 66.088 kg Intake & Output: Intake & Output 01/27/21 01/28/21 01/28/21 21:59 05:59 13:59 Intake Total 1040 175 Output Total 765 585 Balance 275 -410 Weight 66.088 kg Intake: Oral 1040 175 Output: Drainage 15 10 right hip A 5 4 right hip B 10 6 Urine Catheter Amount 750 Void Amount 575 Other: Meal Dinner Percent of Meal Consumed 100% Feeding Ability Independent Urine Appearance Clear Clear Uretheral (Carl) Clear Urine Color Bright Yellow Bright Yellow Uretheral (Carl) Bright Yellow Urine Odor Normal Uretheral (Carl) Normal Stool Color Brown Stool Consistency Soft Formed Exam: General: Alert, Awake, No acute Distress Eyes/N/T: EOMI, Head/Neck: neck supple, CV: RRR, No murmurs, Pulm: Clear b/l, no wheezing/rhonchi/rales Abd: soft, nontender, +BS x4 Ext: no clubbing/cyanosis/edema. b/l LE weakness Neuro: Alert, no focal deficits, moves all extremities, Skin: warm/dry, diffuse rash, two NAYE drains in place OBJ DATA Labs CBC & Chem 7: 01/28/21 05:20 01/28/21 05:20 Labs: Abnormal Lab Results 01/28/21 01/28/21 01/28/21 05:20 05:20 05:20 WBC 12.8 H RBC 3.17 L Hgb 9.0 L Hct 29.1 L MCHC 30.9 L RDW 20.2 H Plt Count 666 H Neut % (Auto) 35.6 L Lymph % (Auto) Eos % (Auto) 37.6 H Lymph # (Auto) [place] # (Auto) 1.30 H Eos # (Auto) 4.80 H Absolute Neutrophils PT 25.3 H INR 2.2 H BUN 39 H Creatinine Glucose Calcium 01/27/21 01/27/21 01/27/21 05:40 05:40 05:40 WBC 14.4 H RBC 2.94 L Hgb 8.2 L Hct 26.8 L MCHC 30.6 L RDW 19.8 H Plt Count 615 H Neut % (Auto) Lymph % (Auto) 12.0 L Eos % (Auto) 18.3 H Lymph # (Auto) [place] # (Auto) 1.72 H Eos # (Auto) 2.63 H Absolute Neutrophils 8.26 H PT 24.2 H INR 2.1 H BUN 35 H Creatinine Glucose Calcium 8.4 L 01/26/21 01/26/21 01/26/21 05:30 05:30 05:29 WBC 16.5 H RBC 2.91 L Hgb 8.3 L Hct 27.2 L MCHC 30.5 L RDW 19.8 H Plt Count 562 H Neut % (Auto) Lymph % (Auto) 7.2 L Eos % (Auto) 23.3 H Lymph # (Auto) 1.19 L [place] # (Auto) 1.75 H Eos # (Auto) 3.84 H Absolute Neutrophils 9.58 H PT 19.6 H INR 1.6 H BUN 34 H Creatinine 0.6 L Glucose 108 H Calcium 8.5 L Meds: Medications Acetaminophen (Acetaminophen 325 Mg Tablet) 650 mg PO Q6HP PRN; Protocol PRN Reason: Per Pain Protocol/Fever > 101 Last Admin: 01/24/21 17:44 Dose: 650 mg Documented by: Hydrocodone Bitart/Acetaminophen (Hydrocodone/Apap 5/325mg Tablet) 1 tab PO Q4HP PRN; Protocol PRN Reason: Per Pain Protocol Aztreonam (Aztreonam 1 Gm Vial) 1 gm IV Q8H [facility]; Protocol Last Admin: 01/28/21 05:52 Dose: 1 gm Documented by: Bacitracin (Bacitracin Topical Oint 15 Gm Tube) 1 dose TOPICAL BID [facility] Last Admin: 01/28/21 10:26 Dose: 1 dose Documented by: Daptomycin (Daptomycin 500 Mg Vial) 400 mg IV DAILY@0900 [facility]; Protocol Last Admin: 01/28/21 10:10 Dose: 400 mg Documented by: Diphenhydramine HCl (Diphenhydramine 25 Mg Capsule) 25 mg PO Q4-6HP PRN PRN Reason: Allergic Symptoms Last Admin: 01/25/21 07:50 Dose: 25 mg Documented by: Metronidazole (Metronidazole 500 Mg Tablet) 500 mg PO Q8 [facility]; Protocol Last Admin: 01/28/21 05:52 Dose: 500 mg Documented by: Ondansetron HCl (Ondansetron 4 Mg/2 Ml Vial) 4 mg IV Q6HP PRN PRN Reason: Nausea And Vomiting Polyethylene Glycol (Polyethylene Glycol 3350 17 Gm Packet) 17 gm PO DAILYP PRN PRN Reason: Constipation Senna (Sennosides 1 Tablet) 2 tab PO HS [facility] Last Admin: 01/27/21 20:52 Dose: Not Given Documented by: Sodium Chloride (0.9 % Sodium Chloride 10 Ml Syringe) 10 ml IV Q8 [facility] Last Admin: 01/28/21 05:52 Dose: 10 ml Documented by: Warfarin Sodium (Warfarin Per Pharmacy) 1 order PO UD [facility] Warfarin Sodium (Warfarin 3 Mg Tablet) 3 mg PO ONCE@1400 ONE Stop: 01/28/21 14:01 A/P Narrative A/P Narrative: 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 -Analgesics prn. -Ensure carl catheter exchange every 3 weeks to decrease risk of CAUTI. 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
[2021-01-28] MEDS ORDERED: WARFARIN 3 MG TABLET PO ONE (14:00)
[2021-01-28] MEDS: SENNOSIDES 1 TABLET PO SCH (21:43)
[2021-01-29] MEDS: metroNIDAZOLE 500 MG TABLET PO SCH ×3 (05:59→21:05)
[2021-01-29] MEDS: 0.9 % SODIUM CHLORIDE 10 ML SYRINGE IV SCH ×3 (05:59→21:05)
[2021-01-29] MEDS: AZTREONAM 1 GM VIAL IV SCH ×3 (05:59→21:05)
--- NOTE | 2021-01-29 07:30 | Internal Med Progress Note ---
SUBJECTIVE Subjective Patient information: Note initiated : 01/29/21 at 7:29 am Service Date, if different from initiated Date: [] Patient: Olga Becerra 55 y/o M admitted on 01/23/21 for Wound Flap Closure. Chief Complaint: [] Interval history: Mr. 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 Saeed and subsequently admitted to the hospital. The patient has been followed by infectious disease for sacral osteomyelitis. The patient was on broad-spectrum antibiotics prior to admission. Hospital medicine was consulted for medical management during the patient's hospitalization. The plan going forward is [facility] in a [facility] for wound care and probably rehab. The patient will likely also need antibiotic coverage going forward for them on certain period of time. When I spoke to the patient postope ratively, he says that his pain is well controlled. He did mention that he would like his left extremity PICC line removed. It sounds like this PICC line has been in place for several months. We discussed CODE STATUS at the end of our conversation, the patient wishes to be full code. 01/24-developed a rash, ID feel secondary to Meropenem. Started Benadryl and Prednisone, Meropenem coverage changed to Aztreonam and Flagyl. Daptomycin continued. 01/25-improved rash, will continue prednisone. 01/26-good appetite, rash resolved so discontinued prednisone, surgery culture- NGTD, leukocytosis likely from prednisone 01/27-leukocytosis improving so very likely was from prednisone, cultures showing no growth to date, infectious disease on vacation so unable to get recommendations for IV antibiotics, possible discharge to local SNF vs [facility] depending on plan for antibiotic treatment. Plastic surgery will call ID to discuss plan. 01/28-awaiting final antibiotic plan that will inform disposition. 01/29 Doing well. No new complaints. Antibiotic plan discussed with plastic surgeon yesterday. IV doxy and Bactrim. Review of Systems: denies headache/fever/chills/nausea/vomiting/chest or abdominal pain/cough/dyspnea/diarrhea. Otherwise see above. Constitutional Vitals: Vital Signs Temp Pulse Resp BP Pulse Ox 98.6 F 107 H 14 116/65 97 01/29/21 03:20 01/29/21 03:20 01/29/21 03:20 01/29/21 03:20 01/29/21 03:20 Period Temp Pulse Resp BP Sys/Reich Pulse Ox Last 24 Hr 97.6 F-99.1 F 97-109 14-16 101-121/61-79 95-98 Intake and Output 01/28/21 01/29/21 01/29/21 21:59 05:59 13:59 Intake Total 800 300 Output Total 1365 785 Balance -565 -485 Weight 65.091 kg Intake & Output: Intake & Output 01/28/21 01/29/21 01/29/21 21:59 05:59 13:59 Intake Total 800 300 Output Total 1365 785 Balance -565 -485 Weight 65.091 kg Intake: Oral 800 300 Output: Drainage 15 10 right hip A 5 6 right hip B 10 4 Urine Catheter Amount 1350 775 Other: Urine Appearance Clear Clear Uretheral (Carl) Clear Urine Color Bright Yellow Bright Yellow Uretheral (Carl) Bright Yellow Urine Odor Normal Uretheral (Carl) Normal Stool Size Small Moderate Stool Color Brown Brown Stool Consistency Soft Formed Formed Liquid # Bowel Movements 1 # of times incontinent of 1 Bowels Exam: General: Alert, Awake, No acute Distress Eyes/N/T: EOMI, Head/Neck: neck supple, CV: RRR, No murmurs, Pulm: Clear b/l, no wheezing/rhonchi/rales Abd: soft, nontender, +BS x4 Ext: no clubbing/cyanosis/edema. b/l LE weakness Neuro: Alert, no focal deficits, moves all extremities, Skin: warm/dry, OBJ DATA Labs CBC & Chem 7: 01/28/21 05:20 01/28/21 05:20 Labs: Abnormal Lab Results 01/28/21 01/28/21 01/28/21 05:20 05:20 05:20 WBC 12.8 H RBC 3.17 L Hgb 9.0 L Hct 29.1 L MCHC 30.9 L RDW 20.2 H Plt Count 666 H Neut % (Auto) 35.6 L Lymph % (Auto) Eos % (Auto) 37.6 H Lymph # (Auto) [place] # (Auto) 1.30 H Eos # (Auto) 4.80 H Absolute Neutrophils PT 25.3 H INR 2.2 H BUN 39 H Creatinine Glucose Calcium 01/27/21 01/27/21 01/27/21 05:40 05:40 05:40 WBC 14.4 H RBC 2.94 L Hgb 8.2 L Hct 26.8 L MCHC 30.6 L RDW 19.8 H Plt Count 615 H Neut % (Auto) Lymph % (Auto) 12.0 L Eos % (Auto) 18.3 H Lymph # (Auto) [place] # (Auto) 1.72 H Eos # (Auto) 2.63 H Absolute Neutrophils 8.26 H PT 24.2 H INR 2.1 H BUN 35 H Creatinine Glucose Calcium 8.4 L 01/26/21 01/26/21 01/26/21 05:30 05:30 05:29 WBC 16.5 H RBC 2.91 L Hgb 8.3 L Hct 27.2 L MCHC 30.5 L RDW 19.8 H Plt Count 562 H Neut % (Auto) Lymph % (Auto) 7.2 L Eos % (Auto) 23.3 H Lymph # (Auto) 1.19 L [place] # (Auto) 1.75 H Eos # (Auto) 3.84 H Absolute Neutrophils 9.58 H PT 19.6 H INR 1.6 H BUN 34 H Creatinine 0.6 L Glucose 108 H Calcium 8.5 L Meds: Medications Acetaminophen (Acetaminophen 325 Mg Tablet) 650 mg PO Q6HP PRN; Protocol PRN Reason: Per Pain Protocol/Fever > 101 Last Admin: 01/24/21 17:44 Dose: 650 mg Documented by: Hydrocodone Bitart/Acetaminophen (Hydrocodone/Apap 5/325mg Tablet) 1 tab PO Q4HP PRN; Protocol PRN Reason: Per Pain Protocol Aztreonam (Aztreonam 1 Gm Vial) 1 gm IV Q8H [facility]; Protocol Last Admin: 01/29/21 05:59 Dose: 1 gm Documented by: Bacitracin (Bacitracin Topical Oint 15 Gm Tube) 1 dose TOPICAL BID [facility]ATH[facility] Last Admin: 01/28/21 21:30 Dose: 1 dose Documented by: Daptomycin (Daptomycin 500 Mg Vial) 400 mg IV DAILY@0900 [facility]; Protocol Last Admin: 01/28/21 10:10 Dose: 400 mg Documented by: Diphenhydramine HCl (Diphenhydramine 25 Mg Capsule) 25 mg PO Q4-6HP PRN PRN Reason: Allergic Symptoms Last Admin: 01/25/21 07:50 Dose: 25 mg Documented by: Metronidazole (Metronidazole 500 Mg Tablet) 500 mg PO Q8 [facility]; Protocol Last Admin: 01/29/21 05:59 Dose: 500 mg Documented by: Ondansetron HCl (Ondansetron 4 Mg/2 Ml Vial) 4 mg IV Q6HP PRN PRN Reason: Nausea And Vomiting Polyethylene Glycol (Polyethylene Glycol 3350 17 Gm Packet) 17 gm PO DAILYP PRN PRN Reason: Constipation Senna (Sennosides 1 Tablet) 2 tab PO HS [facility] Last Admin: 01/28/21 21:43 Dose: Not Given Documented by: Sodium Chloride (0.9 % Sodium Chloride 10 Ml Syringe) 10 ml IV Q8 [facility] Last Admin: 01/29/21 05:59 Dose: 10 ml Documented by: Warfarin Sodium (Warfarin Per Pharmacy) 1 order PO UD [facility] A/P Narrative A/P Narrative: 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 -Analgesics prn. -Ensure carl catheter exchange every 3 weeks to decrease risk of CAUTI. -CM for placement -DVT ppx: on coumadin per pharamcy Code status: Sack Department Supervisor Spent With Patient Time: Total time spent is greater than 50% in coordination of care (as documented) at patient's floor/unit and/or counseling patient: QUALITY VTE Deep Vein Thrombosis/Pulmonary Embolism Present on Admission: No
[2021-01-29 07:49] LABS: INR 2.3 (0.9-1.1); Prothrombin Time 26.7 sec (11.9-14.5)
[2021-01-29] MEDS: DAPTOmycin 500 MG VIAL IV SCH (08:57)
[2021-01-29] MEDS: BACITRACIN TOPICAL OINT 15 GM TUBE TOPICAL SCH ×2 (08:57→21:05)
--- NOTE | 2021-01-29 12:28 | General Surgery Progress Note ---
SUBJECTIVE Subjective Patient information: Note initiated : 01/29/21 at 12:25 pm Service Date, if different from initiated Date: [] Patient: Olga Becerra 55 y/o M admitted on 01/23/21 for Wound Flap Closure. Chief Complaint: POD #6 s/p exc and flap closure sacral wound with osteo Constitutional Vitals: Vital Signs Temp Pulse Resp BP Pulse Ox 99.1 F H 100 H 20 108/70 98 01/29/21 08:00 01/29/21 08:00 01/29/21 08:00 01/29/21 08:00 01/29/21 08:00 Period Temp Pulse Resp BP Sys/Reich Pulse Ox Last 24 Hr 98.3 F-99.1 F 99-109 14-20 101-116/61-73 95-98 Intake and Output 01/28/21 01/29/21 01/29/21 21:59 05:59 13:59 Intake Total 800 300 Output Total 1365 785 Balance -565 -485 Weight 143 lb 8 oz Intake & Output: Intake & Output 01/28/21 01/29/21 01/29/21 21:59 05:59 13:59 Intake Total 800 300 Output Total 1365 785 Balance -565 -485 Weight 143 lb 8 oz Intake: Oral 800 300 Output: Drainage 15 10 right hip A 5 6 right hip B 10 4 Urine Catheter Amount 1350 775 Other: Urine Appearance Clear Clear Uretheral (Oneal) Clear Clear Urine Color Bright Yellow Bright Yellow Uretheral (Oneal) Bright Yellow Light [place]icia Urine Odor Normal Uretheral (Oneal) Normal Stool Size Small Moderate Moderate Stool Color Brown Brown Green Stool Consistency Soft Formed Liquid Formed Liquid Loose # Bowel Movements 1 2 # of times incontinent of 1 Bowels Skin Additional comments: Incision clean, dry, intact. Stable. A/P Narrative A/P Narrative: s/p exc and flap closure sacral wound with osteo. Pt doing better. Wound stable, cx negative. Will plan to d/c dapsone, aztreonam and work towards d/c ing the patient with oral doxacycline and septra. Pt was given a chance to ask questions. We will look and see what placement options are available. Time Spent With Patient Time: Total time spent is greater than 50% in coordination of care (as documented) at patient's floor/unit and/or counseling patient:
[2021-01-29] MEDS ORDERED: WARFARIN 3 MG TABLET PO ONE (14:00)
[2021-01-29] MEDS: SENNOSIDES 1 TABLET PO SCH (21:05)
[2021-01-30] MEDS: diphenhydrAMINE 25 MG CAPSULE PO PRN (04:10)
[2021-01-30] MEDS: 0.9 % SODIUM CHLORIDE 10 ML SYRINGE IV SCH (05:54)
[2021-01-30] MEDS: metroNIDAZOLE 500 MG TABLET PO SCH ×2 (05:54→13:28)
[2021-01-30] MEDS: AZTREONAM 1 GM VIAL IV SCH (05:54)
[2021-01-30 06:42] LABS: INR 2.5 (0.9-1.1)
--- NOTE | 2021-01-30 07:46 | Internal Med Progress Note ---
SUBJECTIVE Subjective Patient information: Note initiated : 01/30/21 at 7:45 am Service Date, if different from initiated Date: [] Patient: Olga Becerra 55 y/o M admitted on 01/23/21 for Wound Flap Closure. Chief Complaint: [] Interval history: Mr. 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 Saeed and subsequently admitted to the hospital. The patient has been followed by infectious disease for sacral osteomyelitis. The patient was on broad-spectrum antibiotics prior to admission. Hospital medicine was consulted for medical management during the patient's hospitalization. The plan going forward is placement in a penitentiary facility for wound care and probably rehab. The patient will likely also need antibiotic coverage going forward for them on certain period of time. When I spoke to the patient postope ratively, he says that his pain is well controlled. He did mention that he would like his left extremity PICC line removed. It sounds like this PICC line has been in place for several months. We discussed CODE STATUS at the end of our conversation, the patient wishes to be full code. 01/24-developed a rash, ID feel secondary to Meropenem. Started Benadryl and Prednisone, Meropenem coverage changed to Aztreonam and Flagyl. Daptomycin continued. 01/25-improved rash, will continue prednisone. 01/26-good appetite, rash resolved so discontinued prednisone, surgery culture- NGTD, leukocytosis likely from prednisone 01/27-leukocytosis improving so very likely was from prednisone, cultures showing no growth to date, infectious disease on vacation so unable to get recommendations for IV antibiotics, possible discharge to local SNF vs [facility] depending on plan for antibiotic treatment. Plastic surgery will call ID to discuss plan. 01/28-awaiting final antibiotic plan that will inform disposition. 01/29 Doing well. No new complaints. Antibiotic plan discussed with plastic surgeon yesterday. IV doxy and Bactrim. 01/30 No overnight event or new complaints. Awaiting placement. Review of Systems: denies headache/fever/chills/nausea/vomiting/chest or abdominal pain/cough/dyspnea/diarrhea. Otherwise see above. Constitutional Vitals: Vital Signs Temp Pulse Resp BP Pulse Ox 98.0 F 100 H 16 113/64 99 01/30/21 06:57 01/30/21 06:57 01/30/21 06:57 01/30/21 06:57 01/30/21 06:57 Period Temp Pulse Resp BP Sys/Reich Pulse Ox Last 24 Hr 98.0 F-99.4 F 98-112 16-20 99-124/60-70 96-99 Intake and Output 01/29/21 01/30/21 01/30/21 21:59 05:59 13:59 Intake Total 500 Output Total 815 812 Balance -315 -812 Weight 64.892 kg Intake & Output: Intake & Output 01/29/21 01/30/21 01/30/21 21:59 05:59 13:59 Intake Total 500 Output Total 815 812 Balance -315 -812 Weight 64.892 kg Intake: Oral 500 Output: Drainage 15 12 right hip A 5 5 right hip B 10 7 Urine Catheter Amount 800 800 Other: Urine Appearance Clear Uretheral (Carl) Clear Urine Color Straw Uretheral (Carl) Straw # of times incontinent of 1 Bowels Exam: General: Alert, Awake, No acute Distress Eyes/N/T: EOMI, Head/Neck: neck supple, CV: RRR, No murmurs, Pulm: Clear b/l, no wheezing/rhonchi/rales Abd: soft, nontender, +BS x4 Ext: no clubbing/cyanosis/edema. b/l LE weakness Neuro: Alert, no focal deficits, moves all extremities, Skin: warm/dry, OBJ DATA Labs CBC & Chem 7: 01/28/21 05:20 01/28/21 05:20 Labs: Abnormal Lab Results 01/30/21 01/29/21 01/28/21 04:16 04:40 05:20 WBC RBC Hgb Hct MCHC RDW Plt Count Neut % (Auto) Lymph % (Auto) Eos % (Auto) [place] # (Auto) Eos # (Auto) Absolute Neutrophils PT 28.0 H 26.7 H INR 2.5 H 2.3 H BUN 39 H Calcium 01/28/21 01/28/21 01/27/21 05:20 05:20 05:40 WBC 12.8 H RBC 3.17 L Hgb 9.0 L Hct 29.1 L MCHC 30.9 L RDW 20.2 H Plt Count 666 H Neut % (Auto) 35.6 L Lymph % (Auto) Eos % (Auto) 37.6 H [place] # (Auto) 1.30 H Eos # (Auto) 4.80 H Absolute Neutrophils PT 25.3 H INR 2.2 H BUN 35 H Calcium 8.4 L 01/27/21 01/27/21 05:40 05:40 WBC 14.4 H RBC 2.94 L Hgb 8.2 L Hct 26.8 L MCHC 30.6 L RDW 19.8 H Plt Count 615 H Neut % (Auto) Lymph % (Auto) 12.0 L Eos % (Auto) 18.3 H [place] # (Auto) 1.72 H Eos # (Auto) 2.63 H Absolute Neutrophils 8.26 H PT 24.2 H INR 2.1 H BUN Calcium Meds: Medications Acetaminophen (Acetaminophen 325 Mg Tablet) 650 mg PO Q6HP PRN; Protocol PRN Reason: Per Pain Protocol/Fever > 101 Last Admin: 01/24/21 17:44 Dose: 650 mg Documented by: Hydrocodone Bitart/Acetaminophen (Hydrocodone/Apap 5/325mg Tablet) 1 tab PO Q4HP PRN; Protocol PRN Reason: Per Pain Protocol Aztreonam (Aztreonam 1 Gm Vial) 1 gm IV Q8H [facility]; Protocol Last Admin: 01/30/21 05:54 Dose: 1 gm Documented by: Bacitracin (Bacitracin Topical Oint 15 Gm Tube) 1 dose TOPICAL BID [facility] Last Admin: 01/29/21 21:05 Dose: 1 dose Documented by: Diphenhydramine HCl (Diphenhydramine 25 Mg Capsule) 25 mg PO Q4-6HP PRN PRN Reason: Allergic Symptoms Last Admin: 01/30/21 04:10 Dose: 25 mg Documented by: Metronidazole (Metronidazole 500 Mg Tablet) 500 mg PO Q8 [facility]; Protocol Last Admin: 01/30/21 05:54 Dose: 500 mg Documented by: Ondansetron HCl (Ondansetron 4 Mg/2 Ml Vial) 4 mg IV Q6HP PRN PRN Reason: Nausea And Vomiting Polyethylene Glycol (Polyethylene Glycol 3350 17 Gm Packet) 17 gm PO DAILYP PRN PRN Reason: Constipation Senna (Sennosides 1 Tablet) 2 tab PO HS [facility] Last Admin: 01/29/21 21:05 Dose: Not Given Documented by: Sodium Chloride (0.9 % Sodium Chloride 10 Ml Syringe) 10 ml IV Q8 [facility] Last Admin: 01/30/21 05:54 Dose: 10 ml Documented by: Warfarin Sodium (Warfarin Per Pharmacy) 1 order PO UD [facility] Warfarin Sodium (Warfarin 3 Mg Tablet) 3 mg PO ONCE@1400 [facility] Stop: 01/30/21 14:01 A/P Narrative A/P Narrative: 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 -Ensure carl catheter exchange every 3 weeks to decrease risk of CAUTI. -CM for placement, awaiting placement -DVT ppx: on coumadin per pharamcy Code status: Bucket Operator Spent With Patient Time: Total time spent is greater than 50% in coordination of care (as documented) at patient's floor/unit and/or counseling patient: QUALITY VTE Deep Vein Thrombosis/Pulmonary Embolism Present on Admission: No
[2021-01-30] MEDS: BACITRACIN TOPICAL OINT 15 GM TUBE TOPICAL SCH (08:56)
--- NOTE | 2021-01-30 13:00 | Discharge Summary ---
Discharge Provider Provider Patient information: Note initiated : 01/30/21 at 12:58 pm Service Date, if different from initiated Date: [] Patient: Olga Becerra 55 y/o M admitted on 01/23/21 for Wound Flap Closure. Chief Complaint: [] Date of admission: 01/23/21 10:02 Discharge date: 01/30/21 Primary care physician: Zaira Lopez Consults: 01/23/21 16:11 Consult to Physician [CONS] Routine Comment: Consulting Provider: Mark Cobos Reason For Exam: Physician to Consult 01/23/21 19:14 Consult to Physician [CONS] Routine Comment: Consulting Provider: Adria Pittman Reason For Exam: Physician to Consult 01/28/21 14:06 Consult to Physician [CONS] Routine Comment: SNF referral Consulting Provider: [facility] Mario Reason For Exam: Physician to Consult Discharge Meds Discharge Medications Home Medications acetaminophen 325 mg capsule 325 mg PO Q6HP PRN 01/08/21 [History Confirmed 01/23/21 Last Taken Unknown] allopurinol 100 mg tablet 100 mg PO QDAY 01/08/21 [History Confirmed 01/23/21 Last Taken 01/22/21] ascorbate calcium (vitamin C) 500 mg tablet 500 mg PO QDAY 01/08/21 [History Confirmed 01/23/21 Last Taken 01/22/21] calcium carbonate 200 mg calcium (500 mg) chewable tablet 200 mg PO BID 01/08/21 [History Confirmed 01/23/21 Last Taken 01/22/21] cholecalciferol (vitamin D3) 50 mcg (2,000 unit) capsule 50 mcg PO QDAY 01/08/21 [History Confirmed 01/23/21 Last Taken 01/21/21 07:00] collagenase clostridium histo. 250 unit/gram topical ointment 1 applic TOPICAL QDAY 01/08/21 [History Confirmed 01/23/21 Last Taken 01/21/21 07:00] guaifenesin 600 mg tablet, extended release 12 hr 600 mg PO Q12H PRN 01/08/21 [History Confirmed 01/23/21 Last Taken Unknown] hydroxyzine HCl 25 mg tablet 25 mg PO Q6H PRN tab 01/08/21 [History Confirmed 01/23/21 Last Taken Unknown] metoclopramide HCl 10 mg tablet 10 mg PO QDAY tab 01/08/21 [History Confirmed 01/23/21 Last Taken 01/21/21 07:00] multivitamin 1 tab PO QAM 01/08/21 [History Confirmed 01/23/21 Last Taken 01/21/21 07:00] warfarin 3 mg tablet 3 mg PO QDAY 01/08/21 [History Confirmed 01/23/21 Last Taken 01/20/21] zinc gluconate 50 mg tablet 50 mg PO BID 01/08/21 [History Confirmed 01/23/21 Last Taken 01/21/21 07:00] zinc oxide 20 % topical ointment 1 applic TOPICAL BID-QID PRN 01/08/21 [History Confirmed 01/23/21 Last Taken 01/21/21 07:00] bisacodyl 5 mg tablet,delayed release 5 mg PO QDAY PRN 01/14/21 [History Confirmed 01/23/21 Last Taken Unknown] calcium carbonate-vitamin D3 1 tab PO BID 01/16/21 [History Confirmed 01/23/21 Last Taken 01/22/21] doxycycline monohydrate 100 mg PO BID #8 cap 01/30/21 [Rx Last Taken Unknown] sulfamethoxazole-trimethoprim [Bactrim DS] 1 tab PO Q12H #8 tab 01/30/21 [Rx Last Taken Unknown] COURSE Hospital Course Hospital course: Interval history: Mr. 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 Saeed and subsequently admitted to the hospital. The patient has been followed by infectious disease for sacral osteomyelitis. The patient was on broad-spectrum antibiotics prior to admission. Hospital medicine was consulted for medical management during the patient's hospitalization. The plan going forward is [facility] a [facility] facility for wound care and probably rehab. The patient will likely also need antibiotic coverage going forward for them on certain period of time. When I spoke to the patient postoperatively, he says that his pain is well controlled. He did mention that he would like his left extremity PICC line removed. It sounds like this PICC line has been in place for several months. We discussed CODE STATUS at the end of our conversation, the patient wishes to be full code. 01/24-developed a rash, ID feel secondary to Meropenem. Started Benadryl and Prednisone, Meropenem coverage changed to Aztreonam and Flagyl. Daptomycin continued. 01/25-improved rash, will continue prednisone. 01/26-good appetite, rash resolved so discontinued prednisone, surgery culture- NGTD, leukocytosis likely from prednisone 01/27-leukocytosis improving so very likely was from prednisone, cultures showing no growth to date, infectious disease on vacation so unable to get recommendations for IV antibiotics, possible discharge to local [facility] vs [facility] depending on plan for antibiotic treatment. Plastic surgery will call ID to discuss plan. 01/28-awaiting final antibiotic plan that will inform disposition. 01/29 Doing well. No new complaints. Antibiotic plan discussed with plastic surgeon yesterday. IV doxy and Bactrim. 01/30 No overnight event or new complaints. Awaiting placement. 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 #Chronic carl catheter #Gout Discharge diagnosis: Pressure wound status post excision drainage Reason for admission: Spina bifida Time Spent with Patient Time attestation: Total time spent providing and/or coordinating discharge services: Time spent: Greater than 30 minutes EXAM Constitutional Vitals: Temp Pulse Resp BP Pulse Ox 98.0 F 100 H 16 113/64 99 01/30/21 06:57 01/30/21 06:57 01/30/21 06:57 01/30/21 06:57 01/30/21 06:57 Discharge Data Data Completed and Pending Labs on day of discharge: Labs from last 24 hours 01/30/21 04:16 PT 28.0 H INR 2.5 H Discharge Plan Patient/Caregiver Discharge Instructions Activity: increase activity as tolerated Diet: Regular Diet Activity Restrictions/Additional Instructions: Follow-up with PCP in 3 to 7 days. Prescriptions: New sulfamethoxazole-trimethoprim [Bactrim DS] 800-160 mg tablet 1 tab PO Q12H Qty: 8 RF: 0 doxycycline monohydrate 100 mg capsule 100 mg PO BID Qty: 8 RF: 0 Continued bisacodyl 5 mg tablet,delayed release (DR/EC) 5 mg PO QDAY PRN (Reason: Constipation) RF: 0 guaifenesin 600 mg tablet extended release 12hr 600 mg PO Q12H PRN (Reason: Cough) RF: 0 hydroxyzine HCl 25 mg tablet 25 mg PO Q6H PRN (Reason: Anxiety) RF: 0 multivitamin [Multiple Vitamins] Tablet 1 tab PO QAM RF: 0 metoclopramide HCl [Reglan] 10 mg tablet 10 mg PO QDAY RF: 0 Santyl 250 unit/gram ointment 1 applic topical QDAY RF: 0 ascorbate calcium (vitamin C) 500 mg tablet 500 mg PO QDAY RF: 0 cholecalciferol (vitamin D3) [Vitamin D3] 50 mcg (2,000 unit) capsule 50 mcg PO QDAY RF: 0 warfarin 3 mg tablet 3 mg PO QDAY RF: 0 zinc gluconate 50 mg tablet 50 mg PO BID RF: 0 zinc oxide 20 % ointment 1 applic topical BID-QID PRN (Reason: Skin Irritation) RF: 0 acetaminophen 325 mg capsule 325 mg PO Q6HP PRN (Reason: Pain) RF: 0 allopurinol 100 mg tablet 100 mg PO QDAY RF: 0 calcium carbonate [Antacid (calcium carbonate)] 200 mg calcium (500 mg) tablet,chewable 200 mg PO BID RF: 0 calcium carbonate-vitamin D3 500 mg(1,250mg) -200 unit Tablet 1 tab PO BID RF: 0 Discontinued linezolid [Zyvox] 600 mg tablet 600 mg PO BID RF: 0 metronidazole 500 mg tablet 500 mg PO TID RF: 0 aztreonam 1 gram recon soln 1 g IM TID RF: 0 Other Ambulatory Orders: OT Discharge Order (Routine) Location: None Selected Ordered By: Jose Pennington Physical Therapy at Discharge - General (Routine) Location: None Selected Ordered By: Jose Pennington Follow Up Plan Follow up with: Tino Saeed MD [Physician] - Adria Pittman MD [Physician] - Patient Disposition: Xfer SNF Prognosis: Fair Rehab Potential: Fair I certify that the patient requires SNF services: Yes Overall status at discharge: patient is progressing back to baseline Discharge Orders: Discharge Order (Routine); Ordered 01/30/21 Ordered By: Jose Pennington [facility] VTE Deep Vein Thrombosis/Pulmonary Embolism Present on Admission: No
[2021-01-30] MEDS ORDERED: WARFARIN 3 MG TABLET PO ONE (14:00)
== END 2021-01-30 16:40 | DRG 574 ==
LOC: MEDSUR 10:02 → EDSTATUS 14:00
PROVIDERS: ADMIT Plastic Surgery; ATTEND Internal Medicine